=== PATIENT | female | born 1980 | race African-American/Black ===

== ENCOUNTER 2025-01-31 15:08 | Inpatient (IN) | payer MEDICAID, OTHER ==
[~2025-01-31] VITALS: Ht 175.3 cm; Wt 80.1 kg
[2025-01-31] VITALS (8 sets, daily range): BP systolic 115–132; BP diastolic 71–84; PULSE 54–91; RESP 11–20; TEMP 98.1–98.3; O2SAT 99–100
--- NOTE | 2025-01-31 15:31 | ED.PDOC ---
SOB-HPI HPI Comments This is a 44 year old female presenting to the ED with chief complaint of SOB. Patient reports that she has been experiencing SOB with associated nausea for the past week. Patient relays that she was previously diagnosed with anemia 2 months ago. 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 Patient denies any cough, leg swelling, chest pain, dizziness, headache, vomiting, fever, or chills. 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 SPRAYER History: Denies all CHEMICAL SPRAYER Hx Family History Family History: Reviewed,noncontributory to illness Social History Smoker: Cigarettes Alcohol: Rarely Drugs: Marijuana Lives In: Home Constitutional: denies: chills, diaphoresis, fatigue, fever, malaise, sweats, weakness, others EENTM: denies: blurred vision, double vision, ear bleeding, ear discharge, ear drainage, ear pain, ear ringing, eye pain, eye redness, hearing loss, mouth pain, mouth swelling, nasal discharge, nose bleeding, nose congestion, nose pain, photophobia, tearing, throat pain, throat swelling, voice changes, others Respiratory: reports: shortness of breath; denies: cough, hemoptysis, orthopnea, SOB at rest, SOB with excertion, stridor, wheezing, others Cardiovascular: denies: chest pain, dizzy spells, diaphoresis, Dyspnea on exertion, edema, irregular heart beat, left arm pain, lightheadedness, palpitations, PND, syncope, others Gastrointestinal: reports: nausea; denies: abdomen distended, abdominal pain, blood streaked bowels, constipated, diarrhea, dysphagia, difficulty swallowing, hematemesis, melena, poor appetite, poor fluid intake, rectal bleeding, rectal pain, vomiting, others Genitourinary: denies: abnormal vagina bleeding, burning, dyspareunia, dysuria, flank pain, frequency, hematuria, incontinence, pain, , vagina discharge, urgency, others Neurological: denies: dizziness, fainting, headache, left sided numbness, left sided weakness, numbness, paresthesia, pre-existing deficit, right sided numbness, right sided weakness, seizure, speech problems, tingling, tremors, weakness, others Musculoskeletal: denies: back pain, gout, joint pain, joint swelling, muscle pain, muscle stiffness, neck pain, others Integumetry: denies: bruises, change in color, change in hair/nails, dryness, laceration, lesions, lumps, rash, wounds, others Allergic/Immunocompromised: denies: Difficulty Healing, Frequent Infections, Hives, Itching, others Hematologic/Lymphatic: denies: anemia, blood clots, easy bleeding, easy bruising, swollen glands, others Endocrine: denies: excessive hunger, excessive sweating, excessive thirst, excessive urination, flushing, intolerance to cold, intolerance to heat, un explained weight gain, unexplained weight loss, others Psychiatric: denies: anxiety, bipolar disorder, depression, hopeless, panic disorder, schizophrenia, sleepless, suicidal, others All Other Systems: Reviewed and Negative Physical Exam General Appearance: Moderate Distress HEENT: Pale Conjuntivae (L), Pale Conjuntivae (R), Pharynx Normal, TMs Normal Neck: Full Range of Motion, Non-Tender, Normal, Normal Inspection Respiratory: Chest Non-Tender, Decreased Breath Sounds, Lungs Clear, No Acc essory Muscle Use, Respiratory Distress Cardiovascular: No Edema, No JVD, No Murmur, No Gallop, Tachycardia Breast Exam: Deferred Gastrointestinal: No Organomegaly, Non Tender, No Pulsatile Mass, Normal Bowel Sounds, Soft Genitalia: Deferred Pelvic: Deferred Rectal: Deferred Extremities: No calf tenderness, Normal capillary refill, No pedal edema Musculoskeletal : Apperance: Normal Neurologic: Alert, inventory control associate II-XII nml as Tested, Motor Weakness, Normal Affect, Normal Mood, No Sensory Deficits Cerebellar Function: Normal Reflexes: Normal Skin: Dry, Pallor, Warm Lymphatic: No Adenopathy Was a procedure done? Was a procedure done?: No Differential Dx Differential Diagnosis: Asthma, Bronchitis, CHF, COPD, Pneumonia, Pulmonary Embolism X-Ray, Labs, Meds, VS Vital Signs Date Time Temp Pulse Resp B/P (MAP) Pulse Ox O2 Delivery O2 Flow Rate FiO2 01/31/25 15:37 91 19 99 Room Air* 0 21 01/31/25 15:37 98.1 91 19 116/70 (85) 99 98.1 01/31/25 15:37 98.1 91 19 116/70 (85) 99 98.1 Lab Test 01/31/25 15:49 Range/Units White Blood Count 5.0 4.4-10.8 10^3/uL Red Blood Count 3.56 L 4.0-5.20 10^6/uL Hemoglobin 7.1 L 12.2-16.2 g/dL Hematocrit 22.7 L 36.0-46.0 % Mean Corpuscular Volume 63.9 L 80.0-100.0 fL Mean Corpuscular Hemoglobin 20.0 L 28.0-32.0 pg Mean Corpuscular Hemoglobin Concent 31.3 L 32.0-36.0 g/dL Red Cell Distribution Width 20.1 H 11.8-14.3 % Platelet Count 175 140-450 10^3/uL Mean Platelet Volume 8.3 6.9-10.8 fL Neutrophils (%) (Auto) 50.9 37.0-80.0 % Lymphocytes (%) (Auto) 35.3 10.0-50.0 % Monocytes (%) (Auto) 10.0 0.0-12.0 % Eosinophils (%) (Auto) 2.7 0.0-7.0 % Basophils (%) (Auto) 1.1 0.0-2.0 % Neutrophils # (Auto) 2.6 1.6-8.6 10 ^3/uL Lymphocytes # (Auto) 1.8 0.4-5.4 10 ^3/uL Monocytes # (Auto) 0.5 0-1.3 10 ^3/uL Eosinophils # (Auto) 0.1 0-0.8 10 ^3/uL Basophils # (Auto) 0.1 0-0.2 10 ^3/uL Nucleated Red Blood Cells 0.1 % Platelet Estimate Pending D-Dimer, Quantitative Pending Sodium Level Pending Potassium Level Pending Chloride Level Pending Carbon Dioxide Level Pending Anion Gap Pending Blood Urea Nitrogen Pending Creatinine Pending Glomerular Filtration Rate Calc Pending BUN/Creatinine Ratio Pending Serum Glucose Pending Calcium Level Pending Troponin I High Sensitivity Pending B-Type Natriuretic Peptide Pending IV Hep-Lock was established. The patient's CBC shows a hemoglobin of 7.1 and hematocrit 22.7 The patient continues to be short of breath so we are typed and screening and transfusing the patient 2 units of packed red blood cells The chest x-ray shows: IMPRESSION: 1. No pulmonary airspace consolidation. The patient is being admitted at this time The patient will be evaluated by Infectious Disease secondary to the possible TB Images Reviewed?: Images reviewed and evaluated by me Time of 1ST Reevaluation: 16:19 Reevaluation 1ST: Unchanged Patient Education/Counseling: Diagnosis, Treatment, Prognosis Family Education/Counseling: No Family Present Additional Information Reviewed patient's previous visit(s): None The following tests were ordered, and results were reviewed by me: Chest XR, D- Dimer, CBC, BMP, UA, Trop, BNP, EKG Additional information was gathered from interviewing the following independent historian: NONE I reviewed and agreed with the following test results read by other provider: Chest XR I discussed treatments and results with medical personnel and: Patient Comprehensive systems review obtained and negative except for what is stated in the HPI. Departure 1 Departure Time of Disposition: 16:18 Impression: Primary Impression: Severe anemia Additional Impression: Fatigue Qualified Codes: R53.83 - Other fatigue Disposition: 09 ADMITTED INPATIENT Admit to: Tele Condition: Fair Critical Care Note Critical Care Time?: Yes (45 min-critical care time only) Stability Stability form required: Yes Unstable for transfer: Telemetry monitoring (Telemetry monitoring required), ED Physician Assesment (Clinical assesment) Heart Score Heart Score: Heart Score Response (Comments) Value History N/A 0 EKG N/A 0 Age N/A 0 Risk Factors N/A 0 Troponin N/A 0 Total 0 I personally scribed for PAL MORENO MD ([email or web address]) on 01/31/25 at 15:31. Electronically submitted by Santos Thrasher ([email or web address]). I personally scribed for PAL MORENO MD ([email or web address]) on 01/31/25 at 15:33. Electronically submitted by Santos Thrasher ([email or web address]). PAL MORENO MD Jan 31, 2025 15:31
[2025-01-31 16:01] LABS: Eosinophils # (auto) 0.1 10 ^3/uL (0-0.8); Lymphocytes # (auto) 1.8 10 ^3/uL (0.4-5.4); Monocytes # (auto) 0.5 10 ^3/uL (0-1.3); Neutrophils % (auto) 50.9 % (37.0-80.0); Nucleated Red Blood Cells % 0.1 %
[2025-01-31 16:02] LABS: Basophils # (auto) 0.1 10 ^3/uL (0-0.2); Basophils % (auto) 1.1 % (0.0-2.0); Eosinophils % (auto) 2.7 % (0.0-7.0); Hematocrit 22.7 % (36.0-46.0); Hemoglobin 7.1 g/dL (12.2-16.2); Lymphocytes % (auto) 35.3 % (10.0-50.0); Mean Corpuscular Hgb Conc. 31.3 g/dL (32.0-36.0); Mean Corpuscular Volume 63.9 fL (80.0-100.0); Neutrophils # (auto) 2.6 10 ^3/uL (1.6-8.6); Platelet Count (auto) 175 10^3/uL (140-450); Red Blood Cells 3.56 10^6/uL (4.0-5.20)
[2025-01-31 16:04] LABS: Red Cell Distribution Width 20.1 % (11.8-14.3)
--- NOTE | 2025-01-31 16:12 | DVH ---
CHEST RADIOGRAPH Indication: sob Technique: Single frontal view of the chest was obtained Comparison: None FINDINGS: The cardiac silhouette is unremarkable. The lungs demonstrate no pulmonary airspace consolidation. Th e pulmonary vasculature is unremarkable. There is no pleural effusion.. There is no pneumothorax. IMPRESSION: 1. No pulmonary airspace consolidation.
[2025-01-31 16:18] LABS: Anion Gap 9 (5-15); Carbon Dioxide 23 mmol/L (20-31); Sodium 142 mmol/L (136-145)
[2025-01-31 16:24] LABS: BUN/Creatinine Ratio 8.8 (10.0-20.0); Blood Urea Nitrogen 7 mg/dL (9-23); Chloride 110 mmol/L (98-107); Glucose 89 mg/dL (74-106); Potassium 3.2 mmol/L (3.5-5.1)
[2025-01-31 16:29] LABS: Anisocytosis Slight; Hypochromia Marked; Platelet Estimate Adequate
[2025-01-31 17:51] LABS: Urine Bacteria MANY /hpf (None Seen); Urine Blood Negative /uL (Negative); Urine Clarity Clear (Clear); Urine Color Colorless (Yellow); Urine Protein, UAD Negative (Negative); Urine Specific Gravity 1.007 (1.001-1.035); Urine Squamous Epithelial Cell FEW /hpf (<5); Urine Urobilinogen Normal (Negative); Urine WBC 2 /HPF (0-5); Urine pH 5.5 (5.0-9.0)
[2025-01-31] MEDS ORDERED: DOCUSATE SOD 100 MG CAP PO PRN (20:45)
[2025-01-31] MEDS: LORazepam 2MG/ML-1ML VIAL IV ONE (20:58)
[2025-01-31] MEDS: POTASSIUM CHL 20 Meq TABLET PO ONE (21:34)
--- NOTE | 2025-01-31 22:57 | DVHHP2 ---
History of Present Illness Reason for Visit: Severe anemia History of Present Illness The patient is a 44-year-old female with past medical history of anemia who presented to [facility] ED with complaint of shortness of breaths. Patient reports experiencing generalized weakness, associated nausea, getting worse that prompted this visit. Patient was seen and evaluated in the ED, laboratory data shows WBC 5.0, hemoglobin 7.1, hematocrit 22.7, platelets 175, sodium 142, potassium 3.2, BUN 7, creatinine 0.80, glucose 89, BNP 97.69, troponin 3, D-dimer 0.93, blood pressure 125/75, heart rate 91, temperature 98.2 F, O2 saturation 99% on oxygen. CT angiography showed no evidence of pulmonary atrial filling defect as far as the proximal interlobular level. Patient was given 2 units of PRBC, please see medication orders section in the computer. On my assessment, patient denied chest pain, no headache, no dizziness, no diaphoresis, currently on oxygen, no nausea, no vomiting, no fever, no chills. Patient was admitted for further evaluation and medical management. Past Medical History Anemia Past Surgical History Denies all surgeries Family History Reviewed, noncontributory to the management of this case. Past Social History Patient lives at home, smokes cigarettes, drinks alcohol rarely, uses marijuana. Review of Systems Constitutional: Yes: Weakness; No: Fever, Chills, Sweats, Malaise, Other Eyes: No: Pain, Vision change, Conjunctivae inflammation, Eyelid inflammation, Other, Redness ENT: No: Ear pain, Ear discharge, Nose pain, Nose discharge, Nose congestion, Mouth pain, Mouth swelling, Throat pain, Throat swelling, Other Respiratory: Shortness of breath; No: Cough, Dry, SOB with excertion, Wheezing, Hemoptysis, Pleuritic Pain, Sputum, Wheezing, Other Cardiovascular: No: Chest Pain, Palpitations, Orthopnea, Paroxysmal Noc. Dyspnea, Edema, Lt Headedness, Other Gastrointestinal: No: Nausea, Vomiting, Abdominal Pain, Diarrhea, Constipation, Melena, Hematochezia, Other Genitourinary: No Dysuria, No Frequency, No Incontinence, No Hematuria, No Retention, No Other Musculoskeletal: No: other, neck pain, shoulder pain, arm pain, back pain, hand pain, leg pain, foot pain Skin: No: Rash, Lesions, Jaundice, Bruising, Other Neurological: No: Weakness, Numbness, Incoordination, Change in speech, Confusion, Seizures, Other Allergies: Coded Allergies: Cefazolin (Verified Allergy, Unknown, 01/31/25) Penicillins (Verified Allergy, Unknown, 01/31/25) PT ALLERGIC TO ALL CILINS Medications Current Medications Medications Dose Ordered Sig/Mihir Route Start Time Stop Time Status Last Admin Dose Admin Albuterol 2.5 mg Q4HPRN PRN NEB 01/31/25 20:45 Ipratropium [place] 0.5 mg Q4HPRN PRN NEB 01/31/25 20:45 Acetaminophen/ Hydrocodone Bitart 1 tab Q4HP PRN PO 01/31/25 20:45 Ondansetron HCl 4 mg Q4HP PRN IV 01/31/25 20:45 Docusate Sodium 100 mg BIDPRN PRN PO 01/31/25 20:45 Acetaminophen 650 mg Q6HP PRN PO 01/31/25 20:45 Exam Vital Signs Vital Signs Date Time Temp Pulse Resp B/P (MAP) Pulse Ox O2 Delivery O2 Flow Rate FiO2 01/31/25 21:35 98.1 55 18 123/71 100 98.1 01/31/25 21:34 Room Air* 0 21 General Appearance: Alert, Oriented X3, Cooperative, No acute distress HEENT: Atraumatic, PERRLA, EOMI, Mucous membr. moist/pink Respiratory: Clear to auscultation, Normal air movement Cardiovascular: Regular rate, Normal S1, Normal S2, No murmurs Abdominal: Normal bowel sounds, Soft, No tenderness, No hepatospenomegaly, No masses Extremities: No clubbing, No cyanosis, No edema, Normal pulses, No tenderness/swelling Skin: No rashes, No breakdown, No significant lesion Neuro: Normal speech, Normal tone, Sensation intact, Cranial nerves 3-12 NL, Reflexes 2+, Other (Generalized weakness) Psych/Mental Status: Mental status NL, Mood NL Labs/Xrays Labs Test 01/31/25 18:59 01/31/25 17:00 01/31/25 15:49 Range/Units Troponin I High Sensitivity 3 L </=34 ng/L Urine Color Colorless Yellow Urine Clarity Clear Clear Urine pH 5.5 5.0-9.0 Urine Specific Lo[place] 1.007 1.001-1.035 Urine Protein Negative Negative Urine Ketones Negative Negative Urine Blood Negative Negative /uL Urine Nitrite Negative Negative Urine Bilirubin Negative Negative Urine Urobilinogen Normal Negative mg/dL Urine Leukocyte Esterase Negative Negative /uL Urine RBC 1 0 - 4 /hpf Urine Microscopic WBC 2 0-5 /HPF Urine Squamous Epithelial Cells Few <5 /hpf Urine Bacteria Many H None Seen /hpf Urine Glucose Normal Normal mg/dL White Blood Count 5.0 4.4-10.8 10^3/uL Red Blood Count 3.56 L 4.0-5.20 10^6/uL Hemoglobin 7.1 L 12.2-16.2 g/dL Hematocrit 22.7 L 36.0-46.0 % Mean Corpuscular Volume 63.9 L 80.0-100.0 fL Mean Corpuscular Hemoglobin 20.0 L 28.0-32.0 pg Mean Corpuscular Hemoglobin Concent 31.3 L 32.0-36.0 g/dL Red Cell Distribution Width 20.1 H 11.8-14.3 % Platelet Count 175 140-450 10^3/uL Mean Platelet Volume 8.3 6.9-10.8 fL Neutrophils (%) (Auto) 50.9 37.0-80.0 % Lymphocytes (%) (Auto) 35.3 10.0-50.0 % Monocytes (%) (Auto) 10.0 0.0-12.0 % Eosinophils (%) (Auto) 2.7 0.0-7.0 % Basophils (%) (Auto) 1.1 0.0-2.0 % Neutrophils # (Auto) 2.6 1.6-8.6 10 ^3/uL Lymphocytes # (Auto) 1.8 0.4-5.4 10 ^3/uL Monocytes # (Auto) 0.5 0-1.3 10 ^3/uL Eosinophils # (Auto) 0.1 0-0.8 10 ^3/uL Basophils # (Auto) 0.1 0-0.2 10 ^3/uL Nucleated Red Blood Cells 0.1 % Platelet Estimate Adequate Hypochromasia (manual) Marked Anisocytosis (manual) Slight Microcytosis Marked D-Dimer, Quantitative 0.93 H 0.0-0.49 mg/L FEU Sodium Level 142 136-145 mmol/L Potassium Level 3.2 L 3.5-5.1 mmol/L Chloride Level 110 H 98-107 mmol/L Carbon Dioxide Level 23 20-31 mmol/L Anion Gap 9 5-15 Blood Urea Nitrogen 7 L 9-23 mg/dL Creatinine 0.80 0.550-1.02 mg/dL Glomerular Filtration Rate Calc 94 >90 mL/min BUN/Creatinine Ratio 8.8 L 10.0-20.0 Serum Glucose 89 74-106 mg/dL Calcium Level 9.0 8.7-10.4 mg/dL B-Type Natriuretic Peptide 97.69 0-100 pg/mL PATIENT: RADHA GRACE ACCT: [id number] UNIT: [id number] : 1980 LOC: [facility] ROOM / BED: [facility]9T / A AGE / SEX: 44 / F ADM STATUS: ADM IN SERVICE 37 ORDERING PHYSICIAN: MAXX AHN DNP PROCEDURE(s): CTACH - CT ANGIO CHEST CONTRAST REASON: Elevated D-dimer ORDER NUMBER(s): [id number], ACCESSION NUMBER(s): [id number] COMPUTERIZED TOMOGRAPHIC ANGIOGRAPHY OF THE CHEST WITH INTRAVENOUS CONTRAST REASON FOR EXAM: Elevated D-dimer COMPARISON: None TECHNIQUE: The exam was performed on a multidetector spiral scanner. Spiral images were acquired from the thoracic inlet through the adrenal glands, during the bolus intravenous administration of contrast. Images were reconstructed with a slice thickness of 3 mm. Multiplanar maximum intensity projection (MIP) images were provided. Automated exposure control was used. LABS: Current laboratory values provided were reviewed or point of care testing was performed to verify the patient meets current departmental guidelines for contrast media administration per protocol. CONTRAST ADMINISTERED: 100 mL omnipaque 350 intravenously. MEDICATIONS: The patient's medication list was reviewed. RADIATION DOSE: CTDI: 27 mGy DLP: 774 mGy-cm FINDINGS: Evaluation of the lung parenchyma is degraded by significant respiratory motion artifact. No pulmonary nodule or mass is identified within the limitations of artifact. There is no pleural effusion. There is no pneumothorax. There is subcentimeter bilateral hilar adenopathy. There is no thoracic aortic aneurysm. There is no evidence of pulmonary arterial filling defect as far as the proximal interlobar level. The heart is not enlarged. There is no pericardial effusion. The visualized thyroid gland is unremarkable. No pathologic lymphadenopathy is identified by size criteria. No acute osseous abnormality is identified. IMPRESSION: There is no evidence of pulmonary arterial filling defect as far as the proximal interlobar level. Subcentimeter bilateral hilar lymph nodes, nonspecific. ORDERING PHYSICIAN: PAL MORENO MD PROCEDURE(s): CXRP - CHEST PORTABLE REASON: sob ORDER NUMBER(s): [id number], ACCESSION NUMBER(s): [id number] CHEST RADIOGRAPH Indication: sob Technique: Single frontal view of the chest was obtained Comparison: None FINDINGS: The cardiac silhouette is unremarkable. The lungs demonstrate no pulmonary airspace consolidation. The pulmonary vasculature is unremarkable. There is no pleural effusion. There is no pneumothorax. IMPRESSION: 1. No pulmonary airspace consolidation. Assessment/Plan Assessment/Plan Severe anemia Fatigue Other fatigue Elevated D-dimer Generalized weakness Plan 1. Admit to telemetry unit 2. Breathing treatment 3. Pain control management 4. Management of fluids and electrolytes 5. Consultation for hospitalist 6. Diagnostic tests CT angiography 7. DVT prophylaxis-on SCDs 8. Repeat labs CBC, CMP in a.m. 9. Continue with current medical management 10. Treatment plan discussed with patient and RN. Patient verbalized understanding. Plan discussed with: Patient, Other (RN) My Orders Orders - MAXX AHN DNP Procedure Category Date Status Time Ct Angio Chest CT 01/31/25 Logged Contrast 20:38 Albuterol Medneb PHA 01/31/25 In Process (Ventolin Medneb) 20:45 Ipratropium Medneb PHA 01/31/25 In Process (Atrovent Medneb) 20:45 Allergies MEGHA 01/31/25 In Process 20:38 Code Status CODE 01/31/25 Transmitted 20:38 Oxygen Per Hour RT 01/31/25 Transmitted 20:38 Hydrocodone-Acet PHA 01/31/25 In Process 5/325mg Tab (Eola 20:45 Ondansetron Hcl PHA 01/31/25 In Process (Zofran) 20:45 Docusate Sodium PHA 01/31/25 In Process Capsule (Colace 20:45 Complete Blood Count LAB 02/01/25 Verified 04:00 Comprehensive LAB 02/01/25 Verified Metabolic Panel 04:00 Cardiac DIET 02/01/25 Transmitted Diet-2gna,Lofat,Lochol Breakfast Condition: Serious MEGHA 01/31/25 In Process 20:38 Acetaminophen Tablet PHA 01/31/25 In Process (Tylenol Tablet) 20:45 Bedrest With Bathroom MEGHA 01/31/25 In Process Privileg 20:38 Sequential MEGHA 01/31/25 In Process Compression Device Problem List: (1) Severe anemia (2) Fatigue (3) Other fatigue (4) Elevated d-dimer (5) Generalized weakness Date of Service: Jan 31, 2025 Billing Provider: MAXX AHN DNP Common Visit Codes: 13309-QUHUCEQ INP/OBS CARE (HIGH) MAXX AHN DNP Jan 31, 2025 22:57
[2025-01-31] MEDS ORDERED: NITROGLYCERIN 0.4 MG SL TAB SL PRN (23:00)
[2025-01-31] MEDS ORDERED: MORPHINE SULFATE INJ 2 MG/ml SYRG IV PRN (23:00)
[2025-01-31] MEDS: IOHEXOL 350 MG/ML 100ML IJ ONE (23:01)
--- NOTE | 2025-01-31 23:56 | DVH ---
COMPUTERIZED TOMOGRAPHIC ANGIOGRAPHY OF THE CHEST WITH INTRAVENOUS CONTRAST REASON FOR EXAM: Elevated D-dimer COMPARISON: None TECHNIQUE: The exam was performed on a multidetector spiral scanner. Spiral images were acquired fro m the thoracic inlet through the adrenal glands, during the bolus intravenous administration of cont rast. Images were reconstructed with a slice thickness of 3 mm. Multiplanar maximum intensity proje ction (MIP) images were provided. Automated exposure control was used. LABS: Current laboratory values provided were reviewed or point of care testing was performed to kelley steve the patient meets current departmental guidelines for contrast media administration per protocol. CONTRAST ADMINISTERED: 100 mL omnipaque 350 intravenously. MEDICATIONS: The patient's medication list was reviewed. RADIATION DOSE: CTDI: 27 mGy DLP: 774 mGy-cm FINDINGS: Evaluation of the lung parenchyma is degraded by significant respiratory motion artifact. No pulmonary nodule or mass is identified within the limitations of artifact. There is no pleural eff usion. There is no pneumothorax. There is subcentimeter bilateral hilar adenopathy. There is no thora cic aortic aneurysm. There is no evidence of pulmonary arterial filling defect as far as the proximal interlobar level. The heart is not enlarged. There is no pericardial effusion. The visualized thyro id gland is unremarkable. No pathologic lymphadenopathy is identified by size criteria. No acute osse ous abnormality is identified. IMPRESSION: There is no evidence of pulmonary arterial filling defect as far as the proximal interlobar level. Subcentimeter bilateral hilar lymph nodes, nonspecific.
[2025-02-01] VITALS (14 sets, daily range): BP systolic 115–144; BP diastolic 60–80; PULSE 52–92; RESP 16–18; TEMP 97.4–98.4; O2SAT 96–100
[2025-02-01] MEDS: MELATONIN 5 MG TAB PO ONE (01:58)
[2025-02-01 08:58] LABS: Basophils # (auto) 0.1 10 ^3/uL (0-0.2); Neutrophils # (auto) 3.7 10 ^3/uL (1.6-8.6); Nucleated Red Blood Cells % 0.1 %
[2025-02-01 09:00] LABS: Basophils % (auto) 1.1 % (0.0-2.0); Eosinophils # (auto) 0.1 10 ^3/uL (0-0.8); Eosinophils % (auto) 2.3 % (0.0-7.0); Hematocrit 30.4 % (36.0-46.0); Hemoglobin 9.7 g/dL (12.2-16.2); Lymphocytes # (auto) 1.5 10 ^3/uL (0.4-5.4); Lymphocytes % (auto) 24.5 % (10.0-50.0); Mean Corpuscular Hemoglobin 21.6 pg (28.0-32.0); Mean Corpuscular Hgb Conc. 31.8 g/dL (32.0-36.0); Monocytes # (auto) 0.6 10 ^3/uL (0-1.3); Monocytes % (auto) 10.3 % (0.0-12.0); Neutrophils % (auto) 61.8 % (37.0-80.0); Platelet Count (auto) 181 10^3/uL (140-450); Red Blood Cells 4.48 10^6/uL (4.0-5.20); Red Cell Distribution Width 23.7 % (11.8-14.3)
[2025-02-01 09:20] LABS: Alanine Aminotransferase 14 U/L (7-40); Albumin 4.4 g/dL (3.2-4.8); Anion Gap 8 (5-15); Aspartate Aminotransferase 20 U/L (13-40); BUN/Creatinine Ratio 9.1 (10.0-20.0); Calcium 9.5 mg/dL (8.7-10.4); Carbon Dioxide 21 mmol/L (20-31); Glucose 86 mg/dL (74-106); Potassium 4.1 mmol/L (3.5-5.1); Sodium 143 mmol/L (136-145); Total Protein 7.3 g/dL (5.7-8.2)
[2025-02-01 09:23] LABS: Alkaline Phosphatase 121 U/L (46-116); Bilirubin, Total 1.9 mg/dL (0.2-1.0); Blood Urea Nitrogen 7 mg/dL (9-23); Chloride 114 mmol/L (98-107)
[2025-02-01] MEDS: HYDROcodone-ACET 5/325MG TAB PO PRN (11:44)
[2025-02-01] MEDS: ONDANSETRON HCL 4 MG/2 ML VIAL IV PRN (16:01)
--- NOTE | 2025-02-01 16:59 | DVHPN2 ---
Subjective Overnight events noted patient is here for shortness of breaths palpitation and disease spells. Patient also stated that she was recently positive for QuantiFERON at [facility] currently ruling out tuberculosis Changes from previous H/P or p: No Changes Eyes: No Pain, No Vision change, No Conjunctivae inflammation, No Eyelid inflammation, No Other, No Redness ENT: No Ear pain, No Ear discharge, No Nose pain, No Nose discharge, No Nose congestion, No Mouth pain, No Mouth swelling, No Throat pain, No Throat swelling, No Other Cardiovascular: No Chest Pain, No Palpitations, No Orthopnea, No Paroxysmal Noc. Dyspnea, No Edema, No Lt Headedness, No Other Respiratory: No Cough, No Dry; Shortness of breath; No SOB with excertion, No Wheezing, No Hemoptysis, No Pleuritic Pain, No Sputum, No Other Gastrointestinal: No Nausea, No Vomiting, No Abdominal Pain, No Diarrhea, No Constipation, No Melena, No Hematochezia, No Other Genitourinary: No Dysuria, No Frequency, No Incontinence, No Hematuria, No Retention, No Other Musculoskeletal: No other, No neck pain, No shoulder pain, No arm pain, No back pain, No hand pain, No leg pain, No foot pain Skin: No Rash, No Lesions, No Jaundice, No Bruising, No Other Objective Vitals Vital Signs Date Time Temp Pulse Resp B/P (MAP) Pulse Ox O2 Delivery O2 Flow Rate FiO2 02/01/25 13:00 97.7 69 16 115/60 (78) 99 97.7 02/01/25 10:45 Room Air* 0 21 Intake/Output Intake and Output 02/01/25 07:00 Intake Total 2090 ml Output Total 0 ml Balance 2090 ml Intake Oral 890 ml Tube Feeding 0 ml Blood Product 900 ml Other 300 ml Output Urine Total 0 ml Stool Total 0 ml # Voids 2 Medications Current Medications Medications Dose Ordered Sig/Mihir Route Start Time Stop Time Status Last Admin Dose Admin Albuterol 2.5 mg Q4HPRN PRN NEB 01/31/25 20:45 Ipratropium [place] 0.5 mg Q4HPRN PRN NEB 01/31/25 20:45 Acetaminophen/ Hydrocodone Bitart 1 tab Q4HP PRN PO 01/31/25 20:45 02/01/25 11:44 1 TAB Ondansetron HCl 4 mg Q4HP PRN IV 01/31/25 20:45 02/01/25 16:01 4 MG Docusate Sodium 100 mg BIDPRN PRN PO 01/31/25 20:45 Acetaminophen 650 mg Q6HP PRN PO 01/31/25 20:45 Nitroglycerin 0.4 mg Q5MINP PRN SL 01/31/25 23:00 Morphine Sulfate 2 mg Q30M PRN IV 01/31/25 23:00 Melatonin 5 mg HS PO 02/01/25 22:00 Alprazolam 0.5 mg Q8HPRN PRN PO 02/01/25 15:45 Laboratory Results Laboratory Tests 02/01/25 08:40 Chemistry Test 02/01/25 08:40 Albumin 4.4 g/dL (3.2-4.8) Calcium Level 9.5 mg/dL (8.7-10.4) Total Protein 7.3 g/dL (5.7-8.2) LFT Test 02/01/25 08:40 Alanine Aminotransferase (ALT) 14 U/L (7-40) Alkaline Phosphatase 121 U/L (46-116) H Aspartate Amino Transferase (AST) 20 U/L (13-40) Total Bilirubin 1.9 mg/dL (0.2-1.0) H Urinalysis Test 01/31/25 17:00 Urine Color Colorless (Yellow) Urine Clarity Clear (Clear) Urine pH 5.5 (5.0-9.0) Urine Specific [place] 1.007 (1.001-1.035) Urine Protein Negative (Negative) Urine Ketones Negative (Negative) Urine Blood Negative /uL (Negative) Urine Nitrite Negative (Negative) Urine Bilirubin Negative (Negative) Urine Urobilinogen Normal mg/dL (Negative) Urine Leukocyte Esterase Negative /uL (Negative) Urine RBC 1 /hpf (0 - 4) Urine Microscopic WBC 2 /HPF (0-5) Urine Squamous Epithelial Cells Few /hpf (<5) Urine Bacteria Many /hpf (None Seen) H Urine Glucose Normal mg/dL (Normal) Assessment/Plan Assessment/Plan 81-year-old female with a known history of chronic anemia, presented to the hospital with a complaining of fainting spells on and off. 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 Currently we are waiting for the records from [facility]. Also patient was told by mother that she was treated for TB when she was a child for one year. 1. Recent positive QuantiFERON as an outpatient, rule out tuberculosis although clinical suspicion is low 2. Severe anemia status post 2 units of packed RBC 3. Fainting spells suspect anxiety disorder 4. Bilateral hilar adenopathy -checks sputum for AFB x3, QuantiFERON gold. Follow up Infectious Disease recommendations, anxiety pills. Plan discussed with: Patient My Orders Orders - KWABENA NICHOLAS MD Procedure Category Date Status Time * Infectious Shahla- CONS 02/01/25 Transmitted K Miguel 14:47 Alprazolam Tablet PHA 02/01/25 In Process (Xanax Tablet) 15:45 Date of Service: Feb 01, 2025 Billing Provider: KWABENA NICHOLAS MD Common Visit Codes: [id number] INP/OBS CARE(MOD) KWABENA NICHOLAS MD Feb 01, 2025 16:59
--- NOTE | 2025-02-01 17:22 | DVHCONRES ---
Date Seen: Feb 01, 2025 Resident Creating Document: BESS DIA RESIDENT Referring Physician Dr Jordan Reason for Consultation Rule out TB History of Present Illness 44 F with PMH of anemia, menorhhagia, presented with complaints of fainting spells since August, associated with episodes of shortness of breath, sweating. Patient mentioned that she has generalized fatigue since August with loss of appetite and weight loss. Patient does not remember the exact amount of weight loss. She also mentioned we had dry cough with a occasional cough with sputum since September. 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 Patient mentioned that she had BCG vaccine in childhood and was told by mother that she was treated for TB when she was a child for one year. He denied any other exposure of TB, denied any travel outside of the country. She denied symptoms of evening sweats, fever, chills. She denied any chest pain, palpitation, orthopnea, headache, seizures, nausea, vomiting. Past medical history Anemia, menorrhagia Past surgical history Tubal ligation 1999 Social history Patient lives with her kid Smokes cigarettes 5-8 cigarettes per day since teenager Occasional marijuana and alcohol use Denied any other drugs Medication history No active medications Sexual history Not sexually active for last one year, history of multiple partners Menstrual history Regular cycles Menses last eight days, normal flow Allergic history Patient mentioned allergic to penicillin, Ancef, describes as severe with itching, hives, mentions "we will after taking penicillin" Family History: Diabetes mellitus G8 MOTHER Hypertension G8 MOTHER Allergies: Coded Allergies: Morphine (Verified Allergy, Intermediate, 02/05/25) Cefazolin (Verified Allergy, Unknown, 01/31/25) Penicillins (Verified Allergy, Unknown, 01/31/25) PT ALLERGIC TO ALL CILINS Home Meds No Active Prescriptions or Reported Meds Current Medications Current Medications Medications (Trade) Dose Ordered Sig/Mihir Route PRN Reason Start Time Stop Time Status Last Admin Albuterol (Ventolin Medneb) 2.5 mg Q4HPRN PRN NEB SHORTNESS OF BREATH 01/31/25 20:45 Ipratropium [place] (Atrovent Medneb) 0.5 mg Q4HPRN PRN NEB SHORTNESS OF BREATH 01/31/25 20:45 Acetaminophen/ Hydrocodone Bitart (Kake 5/325MG Tab) 1 tab Q4HP PRN PO MODERATE PAIN (4-6 PAIN SCALE) 01/31/25 20:45 02/01/25 11:44 Ondansetron HCl (Zofran) 4 mg Q4HP PRN IV NAUSEA / VOMITING 01/31/25 20:45 02/01/25 16:01 Docusate Sodium (Colace Capsule) 100 mg BIDPRN PRN PO FOR CONSTIPATION 01/31/25 20:45 Acetaminophen (Tylenol Tablet) 650 mg Q6HP PRN PO PAIN SCALE 1-3 OR TEMP>100.4 01/31/25 20:45 Nitroglycerin (Ntrostat Sublingual) 0.4 mg Q5MINP PRN SL FOR CHEST PAIN 01/31/25 23:00 Morphine Sulfate 2 mg Q30M PRN IV FOR CHEST PAIN 01/31/25 23:00 Melatonin (Melatonin) 5 mg HS PO 02/01/25 22:00 Alprazolam (Xanax Tablet) 0.5 mg Q8HPRN PRN PO ANXIETY 02/01/25 15:45 Review of Systems As described in the HPI Vital Signs Vital Signs Date Time Temp Pulse Resp B/P (MAP) Pulse Ox O2 Delivery O2 Flow Rate FiO2 02/01/25 13:00 97.7 69 16 115/60 (78) 99 97.7 02/01/25 10:45 Room Air* 0 21 Physical Exam Examination General Appearance: Alert, Oriented X3, Cooperative, No acute distress HEENT: EOMI Respiratory: Clear to auscultation, Normal air movement Cardiovascular: Regular rate, Normal S1, Normal S2 Abdominal: Normal bowel sounds Extremities: No cyanosis, No edema, Normal pulses, No tenderness/swelling Skin: No rashes, No breakdown Neuro: Normal gait, Normal speech, Strength at 5/5 X4 ext, Normal tone, Sensation intact, Cranial nerves 3-12 NL, Reflexes 2+ Psych/Mental Status: Mental status NL, Mood NL Dermatological examination: Black Macular spots on multiple distributions on bilateral legs Labs/Diagnostic Data Labs Test 02/01/25 08:40 01/31/25 18:59 01/31/25 17:00 01/31/25 15:49 Range/Units White Blood Count 6.0 4.4-10.8 10^3/uL Red Blood Count 4.48 4.0-5.20 10^6/uL Hemoglobin 9.7 #L 12.2-16.2 g/dL Hematocrit 30.4 #L 36.0-46.0 % Mean Corpuscular Volume 68.0 #L 80.0-100.0 fL Mean Corpuscular Hemoglobin 21.6 L 28.0-32.0 pg Mean Corpuscular Hemoglobin Concent 31.8 L 32.0-36.0 g/dL Red Cell Distribution Width 23.7 H 11.8-14.3 % Platelet Count 181 140-450 10^3/uL Mean Platelet Volume 8.9 6.9-10.8 fL Neutrophils (%) (Auto) 61.8 37.0-80.0 % Lymphocytes (%) (Auto) 24.5 10.0-50.0 % Monocytes (%) (Auto) 10.3 0.0-12.0 % Eosinophils (%) (Auto) 2.3 0.0-7.0 % Basophils (%) (Auto) 1.1 0.0-2.0 % Neutrophils # (Auto) 3.7 1.6-8.6 10 ^3/uL Lymphocytes # (Auto) 1.5 0.4-5.4 10 ^3/uL Monocytes # (Auto) 0.6 0-1.3 10 ^3/uL Eosinophils # (Auto) 0.1 0-0.8 10 ^3/uL Basophils # (Auto) 0.1 0-0.2 10 ^3/uL Nucleated Red Blood Cells 0.1 % Sodium Level 143 136-145 mmol/L Potassium Level 4.1 3.5-5.1 mmol/L Chloride Level 114 H 98-107 mmol/L Carbon Dioxide Level 21 20-31 mmol/L Anion Gap 8 5-15 Blood Urea Nitrogen 7 L 9-23 mg/dL Creatinine 0.77 0.550-1.02 mg/dL Glomerular Filtration Rate Calc 98 >90 mL/min BUN/Creatinine Ratio 9.1 L 10.0-20.0 Serum Glucose 86 74-106 mg/dL Calcium Level 9.5 8.7-10.4 mg/dL Total Bilirubin 1.9 H 0.2-1.0 mg/dL Aspartate Amino Transferase (AST) 20 13-40 U/L Alanine Aminotransferase (ALT) 14 7-40 U/L Alkaline Phosphatase 121 H 46-116 U/L Total Protein 7.3 5.7-8.2 g/dL Albumin 4.4 3.2-4.8 g/dL Troponin I High Sensitivity 3 L </=34 ng/L Urine Color Colorless Yellow Urine Clarity Clear Clear Urine pH 5.5 5.0-9.0 Urine Specific [place] 1.007 1.001-1.035 Urine Protein Negative Negative Urine Ketones Negative Negative Urine Blood Negative Negative /uL Urine Nitrite Negative Negative Urine Bilirubin Negative Negative Urine Urobilinogen Normal Negative mg/dL Urine Leukocyte Esterase Negative Negative /uL Urine RBC 1 0 - 4 /hpf Urine Microscopic WBC 2 0-5 /HPF Urine Squamous Epithelial Cells Few <5 /hpf Urine Bacteria Many H None Seen /hpf Urine Glucose Normal Normal mg/dL Platelet Estimate Adequate Hypochromasia (manual) Marked Anisocytosis (manual) Slight Microcytosis Marked D-Dimer, Quantitative 0.93 H 0.0-0.49 mg/L FE B-Type Natriuretic Peptide 97.69 0-100 pg/mL Assessment ----Addendum --------- Dr. Juliet Rivera Patient is a 44 year old female with a past medical history of anemia , maharaja , fainting spells since August . presents with SOB and sweating, having about 10 lbs of weight loss , cough , and sputum since September . Was told by Dish that she was in direct contact with another patient that was positive for Tb and then developed a positive quantifier . Patient states she was given the BCG vaccine , however she was born and raised in [place]. Has no travel history , Labs are normal . Has a notable submental lymph node that is on her left side and is enlarged. Physical exams shows crackles in lungs bilaterally . chest xray shows higher lymphadenopathy . Plan : given the risk factors and known active case of TB at [facility] would do a full TB rule out for this patient - recommend repeat quantifier and gold AFB x 3 and MTB PCR x2 . screen for HIV and hemoglobin A1c - can treat empirically for pneumonia for now - rule out alternative potential diagnosis including Covid -19 , aspergillins , gluxidium mycosis . would include non infectious causes of hyler lympha denopathy in the differential including lymphoma and sarcoidosis a reviewed history physical assessment and plan with Dr. Dia . In agreement with the above witht he exception to changes noted in the addendum Plan/Recommendation Assessment/plan # rule out TB -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 # Hilar Lymphadenopathy -seen on CT # severe symptomatic anemia requiring blood transfusion # Sickle Cell Trait Plan -obtain medical records from [facility] -will repeat Tb gold quantiferon -will order 3X AFB 8hrs apart with MTB PCR -HIV, HbA1c -will order azithromycin for concern for non-tubercular mycobacterial infection ( pt is active smoker, increased risk in underlying lung condition) -will order COVID 19 infection, Aspergillus, and Coccidiomycosis panel -Other differentials include non-infectious causes : Sarcoidosis ( Considering h er symptoms and hilar LAD), Lymphoma Keep patient in isolation and airborne precautions Case discussed with Dr Rivera Plan discussed with: Patient, Other BESS DIA RESIDENT Feb 01, 2025 17:22 JULIET RIVERA MD Feb 13, 2025 11:18
[2025-02-01] MEDS: ACETAMINOPHEN 325 MG TAB PO PRN (18:16)
[2025-02-01] MEDS: ALPRAZolam 0.5 MG TAB PO PRN (20:44)
[2025-02-01] MEDS: AZITHROMYCIN 500MG/ 250ML 250 ML IV ONE (21:51)
[2025-02-01] MEDS: MELATONIN 5 MG TAB PO SCH (21:51)
[2025-02-01 22:06] LABS: Erythrocyte Sedimentation Rate 17 mm/hr (0-20)
[2025-02-02] VITALS (13 sets, daily range): BP systolic 120–141; BP diastolic 61–79; PULSE 48–89; RESP 17–18; TEMP 97.8–98.8; O2SAT 97–100
--- NOTE | 2025-02-02 18:27 | DVHPN2 ---
Subjective Overnight events noted patient is here for shortness of breaths palpitation and disease spells. Patient also stated that she was recently positive for QuantiFERON at [facility] currently ruling out tuberculosis Changes from previous H/P or p: No Changes Eyes: No Pain, No Vision change, No Conjunctivae inflammation, No Eyelid inflammation, No Other, No Redness ENT: No Ear pain, No Ear discharge, No Nose pain, No Nose discharge, No Nose congestion, No Mouth pain, No Mouth swelling, No Throat pain, No Throat swelling, No Other Cardiovascular: No Chest Pain, No Palpitations, No Orthopnea, No Paroxysmal Noc. Dyspnea, No Edema, No Lt Headedness, No Other Respiratory: No Cough, No Dry; Shortness of breath; No SOB with excertion, No Wheezing, No Hemoptysis, No Pleuritic Pain, No Sputum, No Other Gastrointestinal: No Nausea, No Vomiting, No Abdominal Pain, No Diarrhea, No Constipation, No Melena, No Hematochezia, No Other Genitourinary: No Dysuria, No Frequency, No Incontinence, No Hematuria, No Retention, No Other Musculoskeletal: No other, No neck pain, No shoulder pain, No arm pain, No back pain, No hand pain, No leg pain, No foot pain Skin: No Rash, No Lesions, No Jaundice, No Bruising, No Other Objective Vitals Vital Signs Date Time Temp Pulse Resp B/P (MAP) Pulse Ox O2 Delivery O2 Flow Rate FiO2 02/02/25 17:00 97.9 89 18 122/62 (82) 100 97.9 02/02/25 10:00 Room Air* 0 21 Intake/Output Intake and Output 02/02/25 07:00 Intake Total 1300 ml Balance 1300 ml Intake Oral 1300 ml # Voids 3 Medications Current Medications Medications Dose Ordered Sig/Mihir Route Start Time Stop Time Status Last Admin Dose Admin Albuterol 2.5 mg Q4HPRN PRN NEB 01/31/25 20:45 Ipratropium [place] 0.5 mg Q4HPRN PRN NEB 01/31/25 20:45 Acetaminophen/ Hydrocodone Bitart 1 tab Q4HP PRN PO 01/31/25 20:45 02/01/25 11:44 1 TAB Ondansetron HCl 4 mg Q4HP PRN IV 01/31/25 20:45 02/01/25 16:01 4 MG Docusate Sodium 100 mg BIDPRN PRN PO 01/31/25 20:45 Acetaminophen 650 mg Q6HP PRN PO 01/31/25 20:45 02/01/25 18:16 650 MG Nitroglycerin 0.4 mg Q5MINP PRN SL 01/31/25 23:00 Morphine Sulfate 2 mg Q30M PRN IV 01/31/25 23:00 Melatonin 5 mg HS PO 02/01/25 22:00 02/01/25 21:51 5 MG Alprazolam 0.5 mg Q8HPRN PRN PO 02/01/25 15:45 02/02/25 10:37 0.5 MG Azithromycin 250 ml @ 125 mls/hr DAILY@1999 IV 02/02/25 20:00 Laboratory Results Laboratory Tests 02/01/25 08:40 Urinalysis Test 01/31/25 17:00 Urine Color Colorless (Yellow) Urine Clarity Clear (Clear) Urine pH 5.5 (5.0-9.0) Urine Specific [place] 1.007 (1.001-1.035) Urine Protein Negative (Negative) Urine Ketones Negative (Negative) Urine Blood Negative /uL (Negative) Urine Nitrite Negative (Negative) Urine Bilirubin Negative (Negative) Urine Urobilinogen Normal mg/dL (Negative) Urine Leukocyte Esterase Negative /uL (Negative) Urine RBC 1 /hpf (0 - 4) Urine Microscopic WBC 2 /HPF (0-5) Urine Squamous Epithelial Cells Few /hpf (<5) Urine Bacteria Many /hpf (None Seen) H Urine Glucose Normal mg/dL (Normal) Assessment/Plan Assessment/Plan 81-year-old female with a known history of chronic anemia, presented to the hospital with a complaining of fainting spells on and off. 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 Currently we are waiting for the records from [facility]. Also patient was told by mother that she was treated for TB when she was a child for one year. 1. Recent positive QuantiFERON as an outpatient, rule out tuberculosis although clinical suspicion is low 2. Severe anemia status post 2 units of packed RBC 3. Fainting spells suspect anxiety disorder 4. Bilateral hilar adenopathy -checks sputum for AFB x3, QuantiFERON gold. Appreciated Infectious Disease recommendations., anxiety pills. -patient does not not one no motor blood draw. Plan discussed with: Patient My Orders Orders - KWABENA NICHOLAS MD Procedure Category Date Status Time Communication Order ORDERS 02/01/25 Transmitted 19:04 Quantiferon-Tb Gold LAB 02/01/25 In Process 19:53 Date of Service: Feb 02, 2025 Billing Provider: KWABENA NICHOLAS MD Common Visit Codes: [id number] INP/OBS CARE(MOD) KWABENA NICHOLAS MD Feb 02, 2025 18:27
[2025-02-02] MEDS: AZITHROMYCIN 500MG/ 250ML 250 ML IV SCH (20:05)
[2025-02-03] VITALS (12 sets, daily range): BP systolic 114–135; BP diastolic 70–112; PULSE 60–101; RESP 18–20; TEMP 97.9–98.9; O2SAT 98–100
--- NOTE | 2025-02-03 17:39 | DVHPN2 ---
Subjective Events to examined the patient patient and patient's family member nobody is in the room. Plan of care discussed with the bedside SURAJ العلي [place] records are still pending. Changes from previous H/P or p: No Changes Eyes: No Pain, No Vision change, No Conjunctivae inflammation, No Eyelid inflammation, No Other, No Redness ENT: No Ear pain, No Ear discharge, No Nose pain, No Nose discharge, No Nose congestion, No Mouth pain, No Mouth swelling, No Throat pain, No Throat swelling, No Other Cardiovascular: No Chest Pain, No Palpitations, No Orthopnea, No Paroxysmal Noc. Dyspnea, No Edema, No Lt Headedness, No Other Respiratory: No Cough, No Dry; Shortness of breath; No SOB with excertion, No Wheezing, No Hemoptysis, No Pleuritic Pain, No Sputum, No Other Gastrointestinal: No Nausea, No Vomiting, No Abdominal Pain, No Diarrhea, No Constipation, No Melena, No Hematochezia, No Other Genitourinary: No Dysuria, No Frequency, No Incontinence, No Hematuria, No Retention, No Other Musculoskeletal: No other, No neck pain, No shoulder pain, No arm pain, No back pain, No hand pain, No leg pain, No foot pain Skin: No Rash, No Lesions, No Jaundice, No Bruising, No Other Objective Vitals Vital Signs Date Time Temp Pulse Resp B/P (MAP) Pulse Ox O2 Delivery O2 Flow Rate FiO2 02/03/25 13:00 98.2 69 18 125/75 (92) 99 98.2 02/03/25 12:20 Room Air* 0 21 Intake/Output Intake and Output 02/03/25 07:00 Intake Total 1650 ml Balance 1650 ml Intake Oral 1400 ml IV Total 250 ml # Voids 4 # Bowel Movements 1 Medications Current Medications Medications Dose Ordered Sig/Mihir Route Start Time Stop Time Status Last Admin Dose Admin Albuterol 2.5 mg Q4HPRN PRN NEB 01/31/25 20:45 Ipratropium [place] 0.5 mg Q4HPRN PRN NEB 01/31/25 20:45 Acetaminophen/ Hydrocodone Bitart 1 tab Q4HP PRN PO 01/31/25 20:45 02/01/25 11:44 1 TAB Ondansetron HCl 4 mg Q4HP PRN IV 01/31/25 20:45 02/01/25 16:01 4 MG Docusate Sodium 100 mg BIDPRN PRN PO 01/31/25 20:45 Acetaminophen 650 mg Q6HP PRN PO 01/31/25 20:45 02/01/25 18:16 650 MG Nitroglycerin 0.4 mg Q5MINP PRN SL 01/31/25 23:00 Morphine Sulfate 2 mg Q30M PRN IV 01/31/25 23:00 Melatonin 5 mg HS PO 02/01/25 22:00 02/02/25 21:53 5 MG Alprazolam 0.5 mg Q8HPRN PRN PO 02/01/25 15:45 02/02/25 10:37 0.5 MG Azithromycin 250 ml @ 125 mls/hr DAILY@2000 IV 02/02/25 20:00 02/02/25 20:05 125 MLS/HR Laboratory Results Laboratory Tests 02/01/25 08:40 Urinalysis Test 01/31/25 17:00 Urine Color Colorless (Yellow) Urine Clarity Clear (Clear) Urine pH 5.5 (5.0-9.0) Urine Specific [place] 1.007 (1.001-1.035) Urine Protein Negative (Negative) Urine Ketones Negative (Negative) Urine Blood Negative /uL (Negative) Urine Nitrite Negative (Negative) Urine Bilirubin Negative (Negative) Urine Urobilinogen Normal mg/dL (Negative) Urine Leukocyte Esterase Negative /uL (Negative) Urine RBC 1 /hpf (0 - 4) Urine Microscopic WBC 2 /HPF (0-5) Urine Squamous Epithelial Cells Few /hpf (<5) Urine Bacteria Many /hpf (None Seen) H Urine Glucose Normal mg/dL (Normal) Assessment/Plan Assessment/Plan 81-year-old female with a known history of chronic anemia, presented to the hospital with a complaining of fainting spells on and off. 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 Currently we are waiting for the records from [facility]. Also patient was told by mother that she was treated for TB when she was a child for one year. 1. Recent positive QuantiFERON as an outpatient, rule out tuberculosis although clinical suspicion is low 2. Severe anemia status post 2 units of packed RBC 3. Fainting spells suspect anxiety disorder 4. Bilateral hilar adenopathy -checks sputum for AFB x3, QuantiFERON gold. Appreciated Infectious Disease recommendations., add anxiolytic medications -request records from [facility]. Plan discussed with: Other Date of Service: Feb 03, 2025 Billing Provider: KWABENA NICHOLAS MD Common Visit Codes: [id number] INP/OBS CARE(MOD) KWABENA NICHOLAS MD Feb 03, 2025 17:39
[2025-02-04] VITALS (12 sets, daily range): BP systolic 101–156; BP diastolic 60–80; PULSE 56–101; RESP 16–19; TEMP 97.7–98.6; O2SAT 98–100
--- NOTE | 2025-02-04 17:06 | DVHPN2 ---
Subjective Patient was seen and evaluated by me. Sputum for AFB samples are still pending. Changes from previous H/P or p: No Changes Eyes: No Pain, No Vision change, No Conjunctivae inflammation, No Eyelid inflammation, No Other, No Redness ENT: No Ear pain, No Ear discharge, No Nose pain, No Nose discharge, No Nose congestion, No Mouth pain, No Mouth swelling, No Throat pain, No Throat swelling, No Other Cardiovascular: No Chest Pain, No Palpitations, No Orthopnea, No Paroxysmal Noc. Dyspnea, No Edema, No Lt Headedness, No Other Respiratory: No Cough, No Dry; Shortness of breath; No SOB with excertion, No Wheezing, No Hemoptysis, No Pleuritic Pain, No Sputum, No Other Gastrointestinal: No Nausea, No Vomiting, No Abdominal Pain, No Diarrhea, No Constipation, No Melena, No Hematochezia, No Other Genitourinary: No Dysuria, No Frequency, No Incontinence, No Hematuria, No Retention, No Other Musculoskeletal: No other, No neck pain, No shoulder pain, No arm pain, No back pain, No hand pain, No leg pain, No foot pain Skin: No Rash, No Lesions, No Jaundice, No Bruising, No Other Objective Vitals Vital Signs Date Time Temp Pulse Resp B/P (MAP) Pulse Ox O2 Delivery O2 Flow Rate FiO2 02/04/25 13:00 97.7 98 18 117/80 (92) 99 97.7 02/04/25 10:11 Room Air 02/04/25 10:11 0 21 Intake/Output Intake and Output 02/04/25 07:00 Intake Total 910 ml Balance 910 ml Intake Oral 910 ml # Voids 3 # Bowel Movements 3 Medications Current Medications Medications Dose Ordered Sig/Mihir Route Start Time Stop Time Status Last Admin Dose Admin Albuterol 2.5 mg Q4HPRN PRN NEB 01/31/25 20:45 Ipratropium [place] 0.5 mg Q4HPRN PRN NEB 01/31/25 20:45 Acetaminophen/ Hydrocodone Bitart 1 tab Q4HP PRN PO 01/31/25 20:45 02/01/25 11:44 1 TAB Ondansetron HCl 4 mg Q4HP PRN IV 01/31/25 20:45 02/01/25 16:01 4 MG Docusate Sodium 100 mg BIDPRN PRN PO 01/31/25 20:45 Acetaminophen 650 mg Q6HP PRN PO 01/31/25 20:45 02/01/25 18:16 650 MG Nitroglycerin 0.4 mg Q5MINP PRN SL 01/31/25 23:00 Morphine Sulfate 2 mg Q30M PRN IV 01/31/25 23:00 Melatonin 5 mg HS PO 02/01/25 22:00 02/03/25 20:57 5 MG Alprazolam 0.5 mg Q8HPRN PRN PO 02/01/25 15:45 02/03/25 21:12 0.5 MG Azithromycin 250 ml @ 125 mls/hr DAILY@2000 IV 02/02/25 20:00 02/03/25 20:57 125 MLS/HR Laboratory Results Laboratory Tests 02/01/25 08:40 Urinalysis Test 01/31/25 17:00 Urine Color Colorless (Yellow) Urine Clarity Clear (Clear) Urine pH 5.5 (5.0-9.0) Urine Specific [place] 1.007 (1.001-1.035) Urine Protein Negative (Negative) Urine Ketones Negative (Negative) Urine Blood Negative /uL (Negative) Urine Nitrite Negative (Negative) Urine Bilirubin Negative (Negative) Urine Urobilinogen Normal mg/dL (Negative) Urine Leukocyte Esterase Negative /uL (Negative) Urine RBC 1 /hpf (0 - 4) Urine Microscopic WBC 2 /HPF (0-5) Urine Squamous Epithelial Cells Few /hpf (<5) Urine Bacteria Many /hpf (None Seen) H Urine Glucose Normal mg/dL (Normal) Assessment/Plan Assessment/Plan 81-year-old female with a known history of chronic anemia, presented to the hospital with a complaining of fainting spells on and off. 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 Currently we are waiting for the records from [facility]. Also patient was told by mother that she was treated for TB when she was a child for one year. 1. Recent positive QuantiFERON as an outpatient, rule out tuberculosis although clinical suspicion is low 2. Severe anemia status post 2 units of packed RBC 3. Fainting spells suspect anxiety disorder 4. Bilateral hilar adenopathy -checks sputum for AFB x3, QuantiFERON gold. Appreciated Infectious Disease recommendations., add anxiolytic medications -request records from [facility] which is still pending. Plan discussed with: Patient Date of Service: Feb 04, 2025 Billing Provider: KWABENA NICHOLAS MD Common Visit Codes: [id number] INP/OBS CARE(MOD) KWABENA NICHOLAS MD Feb 04, 2025 17:06
--- NOTE | 2025-02-04 18:31 | DVHPN2 ---
Consult Progress Note Date Seen: Feb 04, 2025 Subjective Patient reports: No new complaints Other Systems: History of Present Illness 44 F with PMH of anemia, menorhhagia, presented with complaints of fainting spells since August, associated with episodes of shortness of breath, sweating. Patient mentioned that she has generalized fatigue since August with loss of appetite and weight loss. Patient does not remember the exact amount of weight loss. She also mentioned we had dry cough with a occasional cough with sputum since September. 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 Patient mentioned that she had BCG vaccine in childhood and was told by mother that she was treated for TB when she was a child for one year. He denied any other exposure of TB, denied any travel outside of the country. She denied symptoms of evening sweats, fever, chills. She denied any chest pain, palpitation, orthopnea, headache, seizures, nausea, vomiting. Past medical history Anemia, menorrhagia Past surgical history Tubal ligation 1999 Social history Patient lives with her kid Smokes cigarettes 5-8 cigarettes per day since teenager Occasional marijuana and alcohol use Denied any other drugs Medication history No active medications Sexual history Not sexually active for last one year, history of multiple partners Menstrual history Regular cycles Menses last eight days, normal flow Allergic history Patient mentioned allergic to penicillin, Ancef, describes as severe with itching, hives, mentions "we will after taking penicillin" Objective vital signs Vital Sign Date Time Temp Pulse Resp B/P (MAP) Pulse Ox O2 Delivery O2 Flow Rate FiO2 02/04/25 17:00 98.0 62 18 119/69 (86) 100 98.0 02/04/25 10:11 Room Air 02/04/25 10:11 0 21 Total Intake and Output 02/03/25 02/03/25 02/04/25 15:00 23:00 07:00 Intake Total 660 ml 250 ml Balance 660 ml 250 ml medications Current Medications Medications Dose Ordered Sig/Mihir Route Start Time Stop Time Status Last Admin Dose Admin Albuterol 2.5 mg Q4HPRN PRN NEB 01/31/25 20:45 Ipratropium [place] 0.5 mg Q4HPRN PRN NEB 01/31/25 20:45 Acetaminophen/ Hydrocodone Bitart 1 tab Q4HP PRN PO 01/31/25 20:45 02/01/25 11:44 1 TAB Ondansetron HCl 4 mg Q4HP PRN IV 01/31/25 20:45 02/01/25 16:01 4 MG Docusate Sodium 100 mg BIDPRN PRN PO 01/31/25 20:45 Acetaminophen 650 mg Q6HP PRN PO 01/31/25 20:45 02/01/25 18:16 650 MG Nitroglycerin 0.4 mg Q5MINP PRN SL 01/31/25 23:00 Morphine Sulfate 2 mg Q30M PRN IV 01/31/25 23:00 Melatonin 5 mg HS PO 02/01/25 22:00 02/03/25 20:57 5 MG Alprazolam 0.5 mg Q8HPRN PRN PO 02/01/25 15:45 02/03/25 21:12 0.5 MG Azithromycin 250 ml @ 125 mls/hr DAILY@2000 IV 02/02/25 20:00 02/03/25 20:57 125 MLS/HR Examination: GENERAL:Normal, HEENT:Normal, NECK:Abnormal (Submental LAD tender), LUNGS:Normal, CVS:Normal, MSK:Normal, SKIN:Abnormal ( Black Macular spots on multiple distributions on bilateral legs), NEURO:Normal laboratory and microbiology Laboratory Tests 02/01/25 08:40 Test 02/01/25 08:40 Range/Units Serum Glucose 86 74-106 mg/dL Problem List/Assessment/Plan Problem List/Assessment/Plan # rule out TB -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 # severe symptomatic anemia requiring blood transfusion # Sickle Cell Trait Plan -obtain medical records from [facility] -will repeat Tb gold quantiferon, awaiting results -will order 3X AFB 8hrs and MTB PCR, awaiting results -HIV, HbA1c -will order azithromycin for concern for atypical pneumonia ( pt is active smoker, increased risk in underlying lung condition) -will order COVID 19 infection, Aspergillus, and Coccidiomycosis panel, awaiting full results -Other differentials include non-infectious causes : Sarcoidosis ( Considering her symptoms and hilar LAD), Lymphoma Keep patient in isolation and airborne precautions till all the TB workup results come back. No active indications of tubercular antimicrobials as of now. consider nicotine patch as patient is active smoker Case discussed with Dr Cristina - ---Addendum Dr. Juliet Cristina Patient is a 44 year old female with a past medical history of anemia , maharaja , fainting spells since August . presents with SOB and sweating, having about 10 lbs of weight loss , cough , and sputum since September . Was told by [facility] that she was in direct contact with another patient that was positive for Tb and then developed a positive quantifier . Patient states she was given the BCG vaccine , however she was born and raised in [place]. Has no travel history , Labs are normal . Has a notable submental lymph node that is on her left side and is enlarged. Physical exams shows crackles in lungs bilaterally . chest xray shows higher lymphadenopathy . 02/04: continues to do well today , did experience night sweat and abnormal uterine bleeding episodes overnight. Is notable to be mildly tachycardic and has some tenderness at sub mental lymph node . quantifier gold is positive so will need to complete the rule out as that adds to the suspicion , HIV , aspergillus , coxitides antibodies serologies are still pending . Covid -19 is negative Plan : - continue AFB sputum x3 , MTB PCR x2 for TB rule out TB - given the risk factors and known active case of TB at [facility] would do a full TB rule out for this patient - continue azithromycin , stop ceftriaxone - recommend an ultrasound of submental area to confirm this is indeed a lymph node and not a neck abscess - can treat empirically for pneumonia for now - would include non infectious causes of hyler lymphadenopathy in the differential including lymphoma and sarcoidosis a reviewed history physical assessment and plan with Dr. Dia . In agreement with the above witht he exception to changes noted in the addendum Plan discussed with: Patient, Other Dietary Evaluation Review Recommendations by RD: Dietary education by RD Comments: 1) Encourage optimal PO intake 2) Refer to outpatient RD for weight management 3) Follow-up with cardiology, hematology, and infectious disease 4) Continue to monitor I&O, labs, and skin integrity Expected Outcomes/Goals: 1) appetite and labs to improve 2) f/u in 3-5 days CC Plasma Assessment Blood Product Administration S: [id number] BESS DIA RESIDENT Feb 04, 2025 18:31 JULIET CRISTINA MD Feb 13, 2025 12:54
[2025-02-04] MEDS: AZITHROMYCIN 250 MG TAB PO ONE (22:09)
[2025-02-05] VITALS (11 sets, daily range): BP systolic 103–153; BP diastolic 56–94; PULSE 60–96; RESP 14–19; TEMP 97.9–98.2; O2SAT 94–100
--- NOTE | 2025-02-05 18:26 | DVHPN2 ---
Subjective Patient was seen and evaluated by me. Sputum for AFB samples are still pending. Changes from previous H/P or p: No Changes Eyes: No Pain, No Vision change, No Conjunctivae inflammation, No Eyelid inflammation, No Other, No Redness ENT: No Ear pain, No Ear discharge, No Nose pain, No Nose discharge, No Nose congestion, No Mouth pain, No Mouth swelling, No Throat pain, No Throat swelling, No Other Cardiovascular: No Chest Pain, No Palpitations, No Orthopnea, No Paroxysmal Noc. Dyspnea, No Edema, No Lt Headedness, No Other Respiratory: No Cough, No Dry; Shortness of breath; No SOB with excertion, No Wheezing, No Hemoptysis, No Pleuritic Pain, No Sputum, No Other Gastrointestinal: No Nausea, No Vomiting, No Abdominal Pain, No Diarrhea, No Constipation, No Melena, No Hematochezia, No Other Genitourinary: No Dysuria, No Frequency, No Incontinence, No Hematuria, No Retention, No Other Musculoskeletal: No other, No neck pain, No shoulder pain, No arm pain, No back pain, No hand pain, No leg pain, No foot pain Skin: No Rash, No Lesions, No Jaundice, No Bruising, No Other Objective Vitals Vital Signs Date Time Temp Pulse Resp B/P (MAP) Pulse Ox O2 Delivery O2 Flow Rate FiO2 02/05/25 17:00 () 02/05/25 10:00 Room Air 0.0 02/05/25 10:00 21 Intake/Output Intake and Output 02/05/25 07:00 Intake Total 1215 ml Balance 1215 ml Intake Oral 1190 ml IV Total 25 ml # Voids 3 # Bowel Movements 1 Medications Current Medications Medications Dose Ordered Sig/Mihir Route Start Time Stop Time Status Last Admin Dose Admin Albuterol 2.5 mg Q4HPRN PRN NEB 01/31/25 20:45 Ipratropium [place] 0.5 mg Q4HPRN PRN NEB 01/31/25 20:45 Acetaminophen/ Hydrocodone Bitart 1 tab Q4HP PRN PO 01/31/25 20:45 02/01/25 11:44 1 TAB Ondansetron HCl 4 mg Q4HP PRN IV 01/31/25 20:45 02/01/25 16:01 4 MG Docusate Sodium 100 mg BIDPRN PRN PO 01/31/25 20:45 Acetaminophen 650 mg Q6HP PRN PO 01/31/25 20:45 02/01/25 18:16 650 MG Nitroglycerin 0.4 mg Q5MINP PRN SL 01/31/25 23:00 Morphine Sulfate 2 mg Q30M PRN IV 01/31/25 23:00 Melatonin 5 mg HS PO 02/01/25 22:00 02/04/25 22:00 5 MG Alprazolam 0.5 mg Q8HPRN PRN PO 02/01/25 15:45 02/03/25 21:12 0.5 MG Azithromycin 500 mg DAILY@1999 PO 02/05/25 20:00 Laboratory Results Laboratory Tests 02/01/25 08:40 Urinalysis Test 01/31/25 17:00 Urine Color Colorless (Yellow) Urine Clarity Clear (Clear) Urine pH 5.5 (5.0-9.0) Urine Specific [place] 1.007 (1.001-1.035) Urine Protein Negative (Negative) Urine Ketones Negative (Negative) Urine Blood Negative /uL (Negative) Urine Nitrite Negative (Negative) Urine Bilirubin Negative (Negative) Urine Urobilinogen Normal mg/dL (Negative) Urine Leukocyte Esterase Negative /uL (Negative) Urine RBC 1 /hpf (0 - 4) Urine Microscopic WBC 2 /HPF (0-5) Urine Squamous Epithelial Cells Few /hpf (<5) Urine Bacteria Many /hpf (None Seen) H Urine Glucose Normal mg/dL (Normal) Microbiology Microbiology Date/Time Source Procedure Growth Status 02/04/25 09:30 Sputum AFB Broth Culture Pending Resulted 02/04/25 09:30 Sputum - Final Resulted 02/04/25 09:30 Sputum - Final Resulted 02/04/25 09:30 Sputum Acid Fast Bacilli Culture Pending Resulted Assessment/Plan Assessment/Plan 81-year-old female with a known history of chronic anemia, presented to the hospital with a complaining of fainting spells on and off. 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 Currently we are waiting for the records from [facility]. Also patient was told by mother that she was treated for TB when she was a child for one year. 1. Recent positive QuantiFERON as an outpatient, rule out tuberculosis although clinical suspicion is low 2. Severe anemia status post 2 units of packed RBC 3. Fainting spells suspect anxiety disorder 4. Bilateral hilar adenopathy -checks sputum for AFB x3, QuantiFERON gold. Appreciated Infectious Disease recommendations., add anxiolytic medications -request records from [facility] which is still pending. Plan discussed with: Patient Date of Service: Feb 05, 2025 Billing Provider: KWABENA NICHOLAS MD Common Visit Codes: [id number] INP/OBS CARE(MOD) KWABENA NICHOLAS MD Feb 05, 2025 18:26
[2025-02-05] MEDS: AZITHROMYCIN 250 MG TAB PO SCH (20:28)
[2025-02-06] VITALS (10 sets, daily range): BP systolic 91–139; BP diastolic 61–90; PULSE 57–102; RESP 17–20; TEMP 97.6–98.9; O2SAT 95–100
[2025-02-06] MEDS: PROMETHAZINE HCL 6.25 MG/5 ML ORAL SYRUP PO PRN (11:30)
--- NOTE | 2025-02-06 15:55 | DVHPN2 ---
Subjective Patient was seen and evaluated by me. Sputum for AFB samples are still pending. Bedside RN delirium we will call the microbiology and lab Changes from previous H/P or p: No Changes Eyes: No Pain, No Vision change, No Conjunctivae inflammation, No Eyelid inflammation, No Other, No Redness ENT: No Ear pain, No Ear discharge, No Nose pain, No Nose discharge, No Nose congestion, No Mouth pain, No Mouth swelling, No Throat pain, No Throat swelling, No Other Cardiovascular: No Chest Pain, No Palpitations, No Orthopnea, No Paroxysmal Noc. Dyspnea, No Edema, No Lt Headedness, No Other Respiratory: No Cough, No Dry; Shortness of breath; No SOB with excertion, No Wheezing, No Hemoptysis, No Pleuritic Pain, No Sputum, No Other Gastrointestinal: No Nausea, No Vomiting, No Abdominal Pain, No Diarrhea, No Constipation, No Melena, No Hematochezia, No Other Genitourinary: No Dysuria, No Frequency, No Incontinence, No Hematuria, No Retention, No Other Musculoskeletal: No other, No neck pain, No shoulder pain, No arm pain, No back pain, No hand pain, No leg pain, No foot pain Skin: No Rash, No Lesions, No Jaundice, No Bruising, No Other Objective Vitals Vital Signs Date Time Temp Pulse Resp B/P (MAP) Pulse Ox O2 Delivery O2 Flow Rate FiO2 02/06/25 13:00 98.9 75 19 124/80 (95) 97 98.9 02/06/25 10:36 Room Air* 0 21 Intake/Output Intake and Output 02/06/25 07:00 Intake Total 780 ml Output Total 350 ml Balance 430 ml Intake Oral 780 ml Output Urine Total 350 ml Medications Current Medications Medications Dose Ordered Sig/Mihir Route Start Time Stop Time Status Last Admin Dose Admin Albuterol 2.5 mg Q4HPRN PRN NEB 01/31/25 20:45 Ipratropium [place] 0.5 mg Q4HPRN PRN NEB 01/31/25 20:45 Acetaminophen/ Hydrocodone Bitart 1 tab Q4HP PRN PO 01/31/25 20:45 02/06/25 14:38 1 TAB Docusate Sodium 100 mg BIDPRN PRN PO 01/31/25 20:45 Acetaminophen 650 mg Q6HP PRN PO 01/31/25 20:45 02/01/25 18:16 650 MG Nitroglycerin 0.4 mg Q5MINP PRN SL 01/31/25 23:00 Morphine Sulfate 2 mg Q30M PRN IV 01/31/25 23:00 Melatonin 5 mg HS PO 02/01/25 22:00 02/05/25 21:59 5 MG Alprazolam 0.5 mg Q8HPRN PRN PO 02/01/25 15:45 02/03/25 21:12 0.5 MG Azithromycin 500 mg DAILY@2000 PO 02/05/25 20:00 02/05/25 20:28 500 MG Ondansetron HCl 4 mg Q4HP PRN PO 02/06/25 15:15 Laboratory Results Laboratory Tests 02/01/25 08:40 Urinalysis Test 01/31/25 17:00 Urine Color Colorless (Yellow) Urine Clarity Clear (Clear) Urine pH 5.5 (5.0-9.0) Urine Specific [place] 1.007 (1.001-1.035) Urine Protein Negative (Negative) Urine Ketones Negative (Negative) Urine Blood Negative /uL (Negative) Urine Nitrite Negative (Negative) Urine Bilirubin Negative (Negative) Urine Urobilinogen Normal mg/dL (Negative) Urine Leukocyte Esterase Negative /uL (Negative) Urine RBC 1 /hpf (0 - 4) Urine Microscopic WBC 2 /HPF (0-5) Urine Squamous Epithelial Cells Few /hpf (<5) Urine Bacteria Many /hpf (None Seen) H Urine Glucose Normal mg/dL (Normal) Microbiology Microbiology Date/Time Source Procedure Growth Status 02/04/25 09:30 Sputum AFB Broth Culture Pending Resulted 02/04/25 09:30 Sputum - Final Resulted 02/04/25 09:30 Sputum - Final Resulted 02/04/25 09:30 Sputum Acid Fast Bacilli Culture Pending Resulted Assessment/Plan Assessment/Plan 81-year-old female with a known history of chronic anemia, presented to the hospital with a complaining of fainting spells on and off. 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 Currently we are waiting for the records from [facility]. Also patient was told by mother that she was treated for TB when she was a child for one year. 1. Recent positive QuantiFERON as an outpatient, rule out tuberculosis although clinical suspicion is low 2. Severe anemia status post 2 units of packed RBC 3. Fainting spells suspect anxiety disorder 4. Bilateral hilar adenopathy -follow up on sputum for AFB as well as QuantiFERON gold test. Appreciated Infectious Disease recommendations., anxiolytic medications -plan of care discussed with the patient who understand verbalized understanding and agreeable to plan Plan discussed with: Patient My Orders Orders - KWABENA NICHOLAS MD Procedure Category Date Status Time Transfer Orders XFER 02/06/25 Transmitted 15:02 Ondansetron Po PHA 02/06/25 In Process (Zofran Po) 15:15 Date of Service: Feb 06, 2025 Billing Provider: KWABENA NICHOLAS MD Common Visit Codes: [id number] INP/OBS CARE(MOD) KWABENA NICHOLAS MD Feb 06, 2025 15:55
[2025-02-07] VITALS (7 sets, daily range): BP systolic 91–125; BP diastolic 55–66; PULSE 58–75; RESP 14–18; TEMP 97.8–98.5; O2SAT 93–99
[2025-02-07] MEDS: ONDANSETRON ODT 4 MG TAB PO PRN (08:46)
[2025-02-07 11:07] LABS: QuantiFERON-TB Gold Plus Positive (Negative)
[2025-02-07 13:07] LABS: Aspergillus flavus Negative (Neg:<1:1); Aspergillus fumigatus Negative (Neg:<1:1); Aspergillus niger Negative (Neg:<1:1)
--- NOTE | 2025-02-07 15:35 | DVHPN2 ---
Subjective Patient was seen and evaluated by me. Sputum for AFB samples are still pending. Bedside RN piper has been calling the lab and microbiology to check on sputum for AFB. Changes from previous H/P or p: No Changes Eyes: No Pain, No Vision change, No Conjunctivae inflammation, No Eyelid inflammation, No Other, No Redness ENT: No Ear pain, No Ear discharge, No Nose pain, No Nose discharge, No Nose congestion, No Mouth pain, No Mouth swelling, No Throat pain, No Throat swelling, No Other Cardiovascular: No Chest Pain, No Palpitations, No Orthopnea, No Paroxysmal Noc. Dyspnea, No Edema, No Lt Headedness, No Other Respiratory: No Cough, No Dry; Shortness of breath; No SOB with excertion, No Wheezing, No Hemoptysis, No Pleuritic Pain, No Sputum, No Other Gastrointestinal: No Nausea, No Vomiting, No Abdominal Pain, No Diarrhea, No Constipation, No Melena, No Hematochezia, No Other Genitourinary: No Dysuria, No Frequency, No Incontinence, No Hematuria, No Retention, No Other Musculoskeletal: No other, No neck pain, No shoulder pain, No arm pain, No back pain, No hand pain, No leg pain, No foot pain Skin: No Rash, No Lesions, No Jaundice, No Bruising, No Other Objective Vitals Vital Signs Date Time Temp Pulse Resp B/P (MAP) Pulse Ox O2 Delivery O2 Flow Rate FiO2 02/07/25 13:00 98.5 60 14 125/66 (85) 99 98.5 02/07/25 10:00 Room Air* 0 21 Intake/Output Intake and Output 02/07/25 06:59 Intake Total 1310 ml Balance 1310 ml Intake Oral 1310 ml # Voids 8 Medications Current Medications Medications Dose Ordered Sig/Mihir Route Start Time Stop Time Status Last Admin Dose Admin Albuterol 2.5 mg Q4HPRN PRN NEB 01/31/25 20:45 Ipratropium [place] 0.5 mg Q4HPRN PRN NEB 01/31/25 20:45 Acetaminophen/ Hydrocodone Bitart 1 tab Q4HP PRN PO 01/31/25 20:45 02/07/25 13:27 1 TAB Docusate Sodium 100 mg BIDPRN PRN PO 01/31/25 20:45 Acetaminophen 650 mg Q6HP PRN PO 01/31/25 20:45 02/01/25 18:16 650 MG Nitroglycerin 0.4 mg Q5MINP PRN SL 01/31/25 23:00 Morphine Sulfate 2 mg Q30M PRN IV 01/31/25 23:00 Melatonin 5 mg HS PO 02/01/25 22:00 02/06/25 22:20 5 MG Alprazolam 0.5 mg Q8HPRN PRN PO 02/01/25 15:45 02/07/25 13:27 0.5 MG Azithromycin 500 mg DAILY@2000 PO 02/05/25 20:00 02/06/25 21:07 500 MG Ondansetron HCl 4 mg Q4HP PRN PO 02/06/25 15:15 02/07/25 08:46 4 MG Laboratory Results Laboratory Tests 02/01/25 08:40 Urinalysis Test 01/31/25 17:00 Urine Color Colorless (Yellow) Urine Clarity Clear (Clear) Urine pH 5.5 (5.0-9.0) Urine Specific [place] 1.007 (1.001-1.035) Urine Protein Negative (Negative) Urine Ketones Negative (Negative) Urine Blood Negative /uL (Negative) Urine Nitrite Negative (Negative) Urine Bilirubin Negative (Negative) Urine Urobilinogen Normal mg/dL (Negative) Urine Leukocyte Esterase Negative /uL (Negative) Urine RBC 1 /hpf (0 - 4) Urine Microscopic WBC 2 /HPF (0-5) Urine Squamous Epithelial Cells Few /hpf (<5) Urine Bacteria Many /hpf (None Seen) H Urine Glucose Normal mg/dL (Normal) Microbiology Microbiology Date/Time Source Procedure Growth Status 02/05/25 09:20 Sputum AFB Broth Culture Pending Resulted 02/05/25 09:20 Sputum - Final Resulted 02/05/25 09:20 Sputum - Final Resulted 02/05/25 09:20 Sputum Acid Fast Bacilli Culture Pending Resulted Assessment/Plan Assessment/Plan 81-year-old female with a known history of chronic anemia, presented to the hospital with a complaining of fainting spells on and off. 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 1. Recent positive QuantiFERON as an outpatient, rule out tuberculosis although clinical suspicion is low 2. Severe anemia status post 2 units of packed RBC 3. Fainting spells suspect anxiety disorder 4. Bilateral hilar adenopathy likely reactive -QuantiFERON gold test is positive BS still waiting for sputum for AFB x3 as well as MTB. Appreciated Infectious Disease recommendations., anxiolytic medications -plan of care discussed with the patient who understand verbalized understanding and agreeable to plan, patient is requesting stronger pain medication for chronic pain syndrome. Plan discussed with: Patient My Orders Orders - KWABENA NICHOLAS MD Procedure Category Date Status Time Mtb Complex Pcr YUID 02/07/25 Logged 15:09 Date of Service: Feb 07, 2025 Billing Provider: KWABENA NICHOLAS MD Common Visit Codes: [id number] INP/OBS CARE(MOD) KWABENA NICHOLAS MD Feb 07, 2025 15:35
[2025-02-07] MEDS: HYDROmorphone HCL 2 MG TAB PO PRN (18:55)
--- NOTE | 2025-02-07 19:35 | DVHPN2 ---
Consult Progress Note Date Seen: Feb 07, 2025 Subjective Patient reports: No new complaints (night sweats) Objective vital signs Vital Sign Date Time Temp Pulse Resp B/P (MAP) Pulse Ox O2 Delivery O2 Flow Rate FiO2 02/07/25 17:00 97.8 58 14 122/57 (78) 93 97.8 02/07/25 10:00 Room Air* 0 21 Total Intake and Output 02/06/25 02/06/25 02/07/25 15:00 23:00 07:00 Intake Total 810 ml 500 ml Balance 810 ml 500 ml medications Current Medications Medications Dose Ordered Sig/Mihir Route Start Time Stop Time Status Last Admin Dose Admin Albuterol 2.5 mg Q4HPRN PRN NEB 01/31/25 20:45 Ipratropium [place] 0.5 mg Q4HPRN PRN NEB 01/31/25 20:45 Acetaminophen/ Hydrocodone Bitart 1 tab Q4HP PRN PO 01/31/25 20:45 02/07/25 13:27 1 TAB Docusate Sodium 100 mg BIDPRN PRN PO 01/31/25 20:45 Acetaminophen 650 mg Q6HP PRN PO 01/31/25 20:45 02/01/25 18:16 650 MG Nitroglycerin 0.4 mg Q5MINP PRN SL 01/31/25 23:00 Melatonin 5 mg HS PO 02/01/25 22:00 02/06/25 22:20 5 MG Alprazolam 0.5 mg Q8HPRN PRN PO 02/01/25 15:45 02/07/25 13:27 0.5 MG Azithromycin 500 mg DAILY@1999 PO 02/05/25 20:00 02/06/25 21:07 500 MG Ondansetron HCl 4 mg Q4HP PRN PO 02/06/25 15:15 02/07/25 08:46 4 MG Hydromorphone HCl 2 mg Q6HP PRN PO 02/07/25 15:30 02/07/25 18:55 2 MG laboratory and microbiology Laboratory Tests 02/01/25 08:40 Test 02/01/25 08:40 Range/Units Serum Glucose 86 74-106 mg/dL Problem List/Assessment/Plan Problem List/Assessment/Plan # rule out Active TB # Gold quaniteferon Test positive -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 # severe symptomatic anemia requiring blood transfusion # Sickle Cell Trait Plan -obtain medical records from [facility] -will repeat Tb gold quantiferon, awaiting results -will order 3X AFB 8hrs and MTB PCR, awaiting results -HIV, HbA1c -will order azithromycin for concern for atypical pneumonia ( pt is active smoker, increased risk in underlying lung condition) -will order COVID 19 infection, Aspergillus, and Coccidiomycosis panel, awaiting full results -Other differentials include non-infectious causes : Sarcoidosis ( Considering her symptoms and hilar LAD), Lymphoma Keep patient in isolation and airborne precautions till all the TB workup results come back. No active indications of tubercular antimicrobials as of now. consider nicotine patch as patient is active smoker Case discussed with Dr Cristina - ---Addendum Dr. Juliet Cristina Patient is a 44 year old female with a past medical history of anemia , maharaja , fainting spells since August . presents with SOB and sweating, having about 10 lbs of weight loss , cough , and sputum since September . Was told by [place] that she was in direct contact with another patient that was positive for Tb and then developed a positive quantifier . Patient states she was given the BCG vaccine , however she was born and raised in [place]. Has no travel history , Labs are normal . Has a notable submental lymph node that is on her left side and is enlarged. Physical exams shows crackles in lungs bilaterally . chest xray shows higher lymphadenopathy . 02/04: continues to do well today , did experience night sweat and abnormal uterine bleeding episodes overnight. Is notable to be mildly tachycardic and has some tenderness at sub mental lymph node . quantifier gold is positive so will need to complete the rule out as that adds to the suspicion , HIV , aspergillus , coxitides antibodies serologies are still pending . Covid -19 is negative 02/07: menstrual bleeding overnight and is feeling lightheaded and dizzy this morning. No mild abdominal tenderness . Being evaluated by gynecology. Renal ultrasound shows a mild hydronephrosis of the right kidney . Abdomen and pelvis CT shows no hydronephrosis of either kidney and an enlarged uterus that is thought to be a form from multiple fibroids Plan : - continue AFB sputum x3 , MTB PCR x2 for TB rule out TB - given the risk factors and known active case of TB at [facility] would do a full TB rule out for this patient - continue azithromycin , stop ceftriaxone - recommend an ultrasound of submental area to confirm this is indeed a lymph node and not a neck abscess - can treat empirically for pneumonia for now - would include non infectious causes of hyler lymphadenopathy in the differential including lymphoma and sarcoidosis a reviewed history physical assessment and plan with Dr. Dia . In agreement with the above with the exception to changes noted in the addendum Plan discussed with: Patient, Other Dietary Evaluation Review Recommendations by RD: Dietary education by RD Comments: 1) Encourage optimal PO intake 2) Refer to outpatient RD for weight management 3) Follow-up with cardiology, hematology, and infectious disease 4) Continue to monitor I&O, labs, and skin integrity Expected Outcomes/Goals: 1) appetite and labs to improve 2) f/u in 3-5 days CC Plasma Assessment Blood Product Administration S: [id number] BESS DIA Feb 07, 2025 19:35 JULIET CRISTINA MD Feb 13, 2025 12:59
[2025-02-07 20:07] LABS: Coccidioides CF Antibody <1:2 (<1:2)
[2025-02-08] VITALS (12 sets, daily range): BP systolic 97–130; BP diastolic 62–90; PULSE 52–100; RESP 16–20; TEMP 97.3–98; O2SAT 83–100
[2025-02-08] MEDS: IPRATROPIUM BROM 0.5 MG/2.5ML INH SOL NEB PRN (00:25)
[2025-02-08] MEDS: ALBUTEROL SULF 2.5 MG/0.5ML(0.5%) NEB SOLN NEB PRN (00:26)
[2025-02-08 05:21] LABS: COVID19 ANTIGEN SOFIA FIA NEGATIVE (NEGATIVE)
[2025-02-08 06:45] LABS: Urine Bacteria FEW /hpf (None Seen); Urine Blood 3+ /uL (Negative); Urine Color Red (Yellow); Urine Protein, UAD 2+ (Negative); Urine Specific Gravity 1.012 (1.001-1.035); Urine Squamous Epithelial Cell None Seen /hpf (<5); Urine Urobilinogen Normal (Negative); Urine WBC 24 /HPF (0-5)
[2025-02-08 06:48] LABS: Urine Clarity Cloudy (Clear)
[2025-02-08 09:09] LABS: Basophils # (auto) 0.1 10 ^3/uL (0-0.2); Eosinophils # (auto) 0.2 10 ^3/uL (0-0.8); Eosinophils % (auto) 2.8 % (0.0-7.0); Neutrophils # (auto) 4.4 10 ^3/uL (1.6-8.6); Nucleated Red Blood Cells % 0.1 %; Platelet Count (auto) 162 10^3/uL (140-450); White Blood Cell 6.8 10^3/uL (4.4-10.8)
[2025-02-08 09:11] LABS: Basophils % (auto) 0.9 % (0.0-2.0); Hemoglobin 9.4 g/dL (12.2-16.2); Lymphocytes # (auto) 1.5 10 ^3/uL (0.4-5.4); Lymphocytes % (auto) 22.3 % (10.0-50.0); Mean Corpuscular Hemoglobin 21.5 pg (28.0-32.0); Mean Corpuscular Hgb Conc. 32.3 g/dL (32.0-36.0); Mean Corpuscular Volume 66.5 fL (80.0-100.0); Monocytes # (auto) 0.7 10 ^3/uL (0-1.3); Monocytes % (auto) 9.8 % (0.0-12.0); Neutrophils % (auto) 64.2 % (37.0-80.0); Red Blood Cells 4.36 10^6/uL (4.0-5.20); Red Cell Distribution Width 24.1 % (11.8-14.3)
[2025-02-08 09:24] LABS: Chloride 106 mmol/L (98-107); Potassium 4.6 mmol/L (3.5-5.1); Sodium 142 mmol/L (136-145)
[2025-02-08 09:25] LABS: Anion Gap 11 (5-15); Calcium 10.3 mg/dL (8.7-10.4); Carbon Dioxide 25 mmol/L (20-31)
[2025-02-08 09:30] LABS: BUN/Creatinine Ratio 15.1 (10.0-20.0); Blood Urea Nitrogen 14 mg/dL (9-23); Glucose 87 mg/dL (74-106)
[2025-02-08] MEDS: CIPROFLOXACIN HCL 500 MG TAB PO ONE (13:15)
--- NOTE | 2025-02-08 14:06 | DVHPN2 ---
Subjective Patient was seen and evaluated by me. Sputum for AFB samples are still pending. Bedside RN piper has been calling the lab and microbiology to check on sputum for AFB. RT will collect MTB today. Changes from previous H/P or p: No Changes Eyes: No Pain, No Vision change, No Conjunctivae inflammation, No Eyelid inflammation, No Other, No Redness ENT: No Ear pain, No Ear discharge, No Nose pain, No Nose discharge, No Nose congestion, No Mouth pain, No Mouth swelling, No Throat pain, No Throat swelling, No Other Cardiovascular: No Chest Pain, No Palpitations, No Orthopnea, No Paroxysmal Noc. Dyspnea, No Edema, No Lt Headedness, No Other Respiratory: No Cough, No Dry; Shortness of breath; No SOB with excertion, No Wheezing, No Hemoptysis, No Pleuritic Pain, No Sputum, No Other Gastrointestinal: No Nausea, No Vomiting, No Abdominal Pain, No Diarrhea, No Constipation, No Melena, No Hematochezia, No Other Genitourinary: No Dysuria, No Frequency, No Incontinence, No Hematuria, No Retention, No Other Musculoskeletal: No other, No neck pain, No shoulder pain, No arm pain, No back pain, No hand pain, No leg pain, No foot pain Skin: No Rash, No Lesions, No Jaundice, No Bruising, No Other Objective Vitals Vital Signs Date Time Temp Pulse Resp B/P (MAP) Pulse Ox O2 Delivery O2 Flow Rate FiO2 02/08/25 13:00 98.0 100 20 117/79 (92) 96 98.0 02/08/25 10:18 Room Air 0.0 02/08/25 10:18 21 Intake/Output Intake and Output 02/08/25 07:00 Intake Total 1000 ml Balance 1000 ml Intake Oral 1000 ml # Voids 6 # Bowel Movements 3 Medications Current Medications Medications Dose Ordered Sig/Mihir Route Start Time Stop Time Status Last Admin Dose Admin Albuterol 2.5 mg Q4HPRN PRN NEB 01/31/25 20:45 02/08/25 10:18 2.5 MG Ipratropium [place] 0.5 mg Q4HPRN PRN NEB 01/31/25 20:45 02/08/25 10:18 0.5 MG Acetaminophen/ Hydrocodone Bitart 1 tab Q4HP PRN PO 01/31/25 20:45 02/08/25 10:35 1 TAB Docusate Sodium 100 mg BIDPRN PRN PO 01/31/25 20:45 Acetaminophen 650 mg Q6HP PRN PO 01/31/25 20:45 02/07/25 21:52 650 MG Nitroglycerin 0.4 mg Q5MINP PRN SL 01/31/25 23:00 Melatonin 5 mg HS PO 02/01/25 22:00 02/07/25 21:41 5 MG Alprazolam 0.5 mg Q8HPRN PRN PO 02/01/25 15:45 02/08/25 06:20 0.5 MG Azithromycin 500 mg DAILY@2000 PO 02/05/25 20:00 02/07/25 20:17 500 MG Ondansetron HCl 4 mg Q4HP PRN PO 02/06/25 15:15 02/08/25 00:18 4 MG Hydromorphone HCl 2 mg Q6HP PRN PO 02/07/25 15:30 02/08/25 08:20 2 MG Ciprofloxacin 500 mg Q12HR PO 02/08/25 22:00 Laboratory Results Laboratory Tests 02/08/25 08:41 Chemistry Test 02/08/25 08:41 Calcium Level 10.3 mg/dL (8.7-10.4) Urinalysis Test 02/08/25 06:26 Urine Color Red (Yellow) H Urine Clarity Cloudy (Clear) H Urine pH 6.0 (5.0-9.0) Urine Specific [place] 1.012 (1.001-1.035) Urine Protein 2+ (Negative) H Urine Ketones Negative (Negative) Urine Blood 3+ /uL (Negative) H Urine Nitrite Negative (Negative) Urine Bilirubin Negative (Negative) Urine Urobilinogen Normal mg/dL (Negative) Urine Leukocyte Esterase 2+ /uL (Negative) Urine RBC 3331 /hpf (0 - 4) Urine Microscopic WBC 24 /HPF (0-5) H Urine Squamous Epithelial Cells None seen /hpf (<5) Urine Bacteria Few /hpf (None Seen) H Urine Glucose Normal mg/dL (Normal) Microbiology Microbiology Date/Time Source Procedure Growth Status 02/05/25 09:20 Sputum AFB Broth Culture Pending Resulted 02/05/25 09:20 Sputum - Final Resulted 02/05/25 09:20 Sputum - Final Resulted 02/05/25 09:20 Sputum Acid Fast Bacilli Culture Pending Resulted Assessment/Plan Assessment/Plan 81-year-old female with a known history of chronic anemia, presented to the hospital with a complaining of fainting spells on and off. 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 Patient is counseled complaining of burning urination and blood in the urine 1. Recent positive QuantiFERON as an outpatient, rule out tuberculosis although clinical suspicion is low 2. Severe anemia status post 2 units of packed RBC 3. Urinary tract infection with hematuria 4. Bilateral hilar adenopathy likely reactive 5. Anxiety disorder -QuantiFERON gold test is positive BS still waiting for sputum for AFB x3 as well as MTB. Appreciated Infectious Disease recommendations., anxiolytic medications -plan of care discussed with the patient who understand verbalized understanding and agreeable to plan, patient is requesting stronger pain medication for chronic pain syndrome. -add ciprofloxacin p.o. for urinary tract infection. Plan discussed with: Patient My Orders Orders - KWABENA NICHOLAS MD Procedure Category Date Status Time Mtb Complex Pcr YUDI 02/07/25 Logged 15:09 Hydromorphone Tablet PHA 02/07/25 In Process (Dilaudid Tablet) 15:30 Kidney US 02/08/25 Taken 13:05 Ciprofloxacin Tablet PHA 02/08/25 In Process (Cipro Tablet) 22:00 Date of Service: Feb 08, 2025 Billing Provider: KWABENA NICHOLAS MD Common Visit Codes: [id number] INP/OBS CARE(MOD) KWABENA NICHOLAS MD Feb 08, 2025 14:06
--- NOTE | 2025-02-08 14:36 | DVH ---
INDICATION: FLANK PAIN TECHNIQUE: Ultrasound kidney Multiple real-time sonographic images of the kidneys and bladder were ob tained. COMPARISON: None FINDINGS: The right kidney measures 12.6 cm in length, which is normal in size. There is normal echog enicity of the right kidney. Mild right hydronephrosis. The left kidney measures 9.94 cm in length, which is normal in size. There is normal echogenicity of the left kidney. No hydronephrosis. No large intraluminal masses are seen in the bladder. Prior to voiding the bladder volume measures vo lume 39.18 cc. Patient had no urge to void IMPRESSION: 1. Right kidney measures 12.6 cm and there appears to be mild hydronephrosis. 2. Left kidney measures 9.94 cm there is no hydronephrosis. 3. Bladder volume prevoid 39.18 ML
--- NOTE | 2025-02-08 18:27 | DVH ---
Exam: CT CT AB PEL WO CON-NO ORAL OR IV History: hydronephrosis Comparison Study: Renal ultrasound 02/08/2025 TECHNIQUE: Multidetector CT of the abdomen and pelvis without IV contrast. Axial, coronal and sagitta l multiplanar reformats were obtained from the axial data set by the technologist. Radiation Dose Information: CT Dose: CTDI volume is 10.22 mGy. Dose-length product is 514.87 mGy*cm FINDINGS: The lung bases are clear. Partially visualized heart is unremarkable. Mild splenomegaly. Otherwise, liver, spleen, gallbladder, pancreas and adrenal glands are unremarkab le. Kidneys and ureters are unremarkable. Limited evaluation of the urinary bladder due to decompressed state. Bulky heterogeneous uterus with multiple masslike lesions and partially calcified left-sided l esion which may represent fibroid uterus. Stomach is unremarkable. Small bowel loops unremarkable. Appendix is unremarkable. Moderate to large amount of fecal material within the colon. No evidence of intraperitoneal free air or free fluid. No evidence of aortic aneurysm. Shotty mesenteric lymph nodes. Small fat containing umbilical hernia. Soft tissues are unremarkable. No destructive osseous lesions are noted. IMPRESSION: No evidence of acute abdominopelvic abnormalities. No significant hydro nephrosis on CT. Constipation. Enlarged uterus which is thought to be from multiple fibroids. Pelvic ultrasound may be considered fo r further evaluation if clinically indicated.
--- NOTE | 2025-02-08 18:31 | DVHINCON2 ---
Date of service: Feb 08, 2025 Referring Physician Hospitalist Reason for Consultation hydronephrosis History of Present Illness History Source: Patient, RN Notes, MD Notes, Old Records Exam Limitations: No limitations HPI 44 yo female who presented for dyspnea. She is complaining of gross hematuria, and heavy irregular menstrual cycles. She is in isolation for potential TB exposure. She reports having TB as a child. To confirm hematuria vs menstruation I placed a 14 f licea catheter. Urine is crystal clear. During licea placement heavy menstruation was noted with clots. She is going through 10 or more pads daily. She is not complaining of any pain. She is pale. Home Meds No Active Prescriptions or Reported Meds Past Medical History Patient Family History: Diabetes mellitus G8 MOTHER Hypertension G8 MOTHER Review of Systems Pulmonary/Respiratory: Dyspnea H&P Exam Vital Signs Vital Signs Date Time Temp Pulse Resp B/P (MAP) Pulse Ox O2 Delivery O2 Flow Rate FiO2 02/08/25 17:00 97.4 98 17 125/81 (96) 99 97.4 02/08/25 10:18 Room Air 0.0 02/08/25 10:18 21 General Appeara: Well developed, Well nourished, Normal Appearance Pulmonary/Respiratory: Normal inspection Cardiovascular/Chest: Normal inspection Abdominal Exam: Soft Rectal Exam: Deferred Back Exam: Normal inspection Pelvic Exam: External exam normal, Active bleeding, Blood Neuro/Mental St: Alert, Oriented Appearance: Appropriate appearance, Appropriate insight Eye contact/ Speech: Cooperative, Good eye contact, Normal speech Skin Exam: Pallor Labs/Xrays CT results are not yet completed however I did review the images and there are no significant findings. The uterus is very enlarged with noted calcified fib roid and there is significant stool/gas. awaiting formal report. Labs Test 02/08/25 08:41 02/08/25 06:26 02/08/25 04:59 02/06/25 08:08 Range/Units White Blood Count 6.8 4.4-10.8 10^3/uL Red Blood Count 4.36 4.0-5.20 10^6/uL Hemoglobin 9.4 L 12.2-16.2 g/dL Hematocrit 29.0 L 36.0-46.0 % Mean Corpuscular Volume 66.5 L 80.0-100.0 fL Mean Corpuscular Hemoglobin 21.5 L 28.0-32.0 pg Mean Corpuscular Hemoglobin Concent 32.3 32.0-36.0 g/dL Red Cell Distribution Width 24.1 H 11.8-14.3 % Platelet Count 162 140-450 10^3/uL Mean Platelet Volume 9.0 6.9-10.8 fL Neutrophils (%) (Auto) 64.2 37.0-80.0 % Lymphocytes (%) (Auto) 22.3 10.0-50.0 % Monocytes (%) (Auto) 9.8 0.0-12.0 % Eosinophils (%) (Auto) 2.8 0.0-7.0 % Basophils (%) (Auto) 0.9 0.0-2.0 % Neutrophils # (Auto) 4.4 1.6-8.6 10 ^3/uL Lymphocytes # (Auto) 1.5 0.4-5.4 10 ^3/uL Monocytes # (Auto) 0.7 0-1.3 10 ^3/uL Eosinophils # (Auto) 0.2 0-0.8 10 ^3/uL Basophils # (Auto) 0.1 0-0.2 10 ^3/uL Nucleated Red Blood Cells 0.1 % Sodium Level 142 136-145 mmol/L Potassium Level 4.6 3.5-5.1 mmol/L Chloride Level 106 98-107 mmol/L Carbon Dioxide Level 25 20-31 mmol/L Anion Gap 11 5-15 Blood Urea Nitrogen 14 9-23 mg/dL Creatinine 0.93 0.550-1.02 mg/dL Glomerular Filtration Rate Calc 78 >90 mL/min BUN/Creatinine Ratio 15.1 10.0-20.0 Serum Glucose 87 74-106 mg/dL Calcium Level 10.3 8.7-10.4 mg/dL Urine Color Red H Yellow Urine Clarity Cloudy H Clear Urine pH 6.0 5.0-9.0 Urine Specific [place] 1.012 1.001-1.035 Urine Protein 2+ H Negative Urine Ketones Negative Negative Urine Blood 3+ H Negative /uL Urine Nitrite Negative Negative Urine Bilirubin Negative Negative Urine Urobilinogen Normal Negative mg/dL Urine Leukocyte Esterase 2+ Negative /uL Urine RBC 3331 0 - 4 /hpf Urine Microscopic WBC 24 H 0-5 /HPF Urine Squamous Epithelial Cells None seen <5 /hpf Urine Bacteria Few H None Seen /hpf Urine Glucose Normal Normal mg/dL SARS-CoV-2 Antigen (Rapid) Negative NEGATIVE Miscellaneous Referred Test (Refrg) Sent to [facility] Test 02/02/25 12:48 02/01/25 21:08 02/01/25 08:40 01/31/25 18:59 Range/Units TB Test (QFT) Gold Plus Positive H Negative TB Test (QFT) Nil 0.08 . IU/mL TB Test (QFT) Mitogen 5.06 . IU/mL TB Test (QFT) Antigen 1 1.40 . IU/mL TB Test (QFT) Antigen 2 1.13 . IU/mL TB Test (QFT) Criteria Comment . Coccidioides Antibody (Comp Fix) <1:2 <1:2 HIV (1&2) Antibody Negative Negative Aspergillus flavus Antibody Negative Neg:<1:1 Aspergillus fumigatus Antibody Negative Neg:<1:1 Aspergillus niger Antibody Negative Neg:<1:1 Erythrocyte Sedimentation Rate 17 0-20 mm/hr Hemoglobin A1c 5.2 <5.7 % A1C Total Bilirubin 1.9 H 0.2-1.0 mg/dL Aspartate Amino Transferase (AST) 20 13-40 U/L Alanine Aminotransferase (ALT) 14 7-40 U/L Alkaline Phosphatase 121 H 46-116 U/L Total Protein 7.3 5.7-8.2 g/dL Albumin 4.4 3.2-4.8 g/dL Troponin I High Sensitivity 3 L </=34 ng/L Test 01/31/25 15:49 Range/Units Platelet Estimate Adequate Hypochromasia (manual) Marked Anisocytosis (manual) Slight Microcytosis Marked D-Dimer, Quantitative 0.93 H 0.0-0.49 mg/L FEU B-Type Natriuretic Peptide 97.69 0-100 pg/mL Microbiology Date/Time Source Procedure Growth Status 02/05/25 09:20 Sputum AFB Broth Culture Pending Resulted 02/05/25 09:20 Sputum - Final Resulted 02/05/25 09:20 Sputum - Final Resulted 02/05/25 09:20 Sputum Acid Fast Bacilli Culture Pending Resulted Assessment/Plan Problem List: (1) Menorrhagia with irregular cycle (2) Bulky or enlarged uterus (3) Severe anemia Plan licea placed for patients peace of mind, she was sure it was bloody urine. Can remove at any time. recommend gynecology consultation. transfuse as indicated. signing off Plan discussed with: Patient, Other ELISE BILLY NP Feb 08, 2025 18:31
--- NOTE | 2025-02-08 19:05 | DVHPN2 ---
Consult Progress Note Date Seen: Feb 08, 2025 Subjective Patient reports: Other (mentions back pain) Objective vital signs Vital Sign Date Time Temp Pulse Resp B/P (MAP) Pulse Ox O2 Delivery O2 Flow Rate FiO2 02/08/25 17:00 97.4 98 17 125/81 (96) 99 97.4 02/08/25 10:18 Room Air 0.0 02/08/25 10:18 21 Total Intake and Output 02/07/25 02/07/25 02/08/25 15:00 23:00 07:00 Intake Total 500 ml 500 ml Balance 500 ml 500 ml medications Current Medications Medications Dose Ordered Sig/Mihir Route Start Time Stop Time Status Last Admin Dose Admin Albuterol 2.5 mg Q4HPRN PRN NEB 01/31/25 20:45 02/08/25 10:18 2.5 MG Ipratropium [place] 0.5 mg Q4HPRN PRN NEB 01/31/25 20:45 02/08/25 10:18 0.5 MG Acetaminophen/ Hydrocodone Bitart 1 tab Q4HP PRN PO 01/31/25 20:45 02/08/25 16:26 1 TAB Docusate Sodium 100 mg BIDPRN PRN PO 01/31/25 20:45 Acetaminophen 650 mg Q6HP PRN PO 01/31/25 20:45 02/07/25 21:52 650 MG Nitroglycerin 0.4 mg Q5MINP PRN SL 01/31/25 23:00 Melatonin 5 mg HS PO 02/01/25 22:00 02/07/25 21:41 5 MG Alprazolam 0.5 mg Q8HPRN PRN PO 02/01/25 15:45 02/08/25 06:20 0.5 MG Azithromycin 500 mg DAILY@2000 PO 02/05/25 20:00 02/07/25 20:17 500 MG Ondansetron HCl 4 mg Q4HP PRN PO 02/06/25 15:15 02/08/25 00:18 4 MG Hydromorphone HCl 2 mg Q6HP PRN PO 02/07/25 15:30 02/08/25 14:35 2 MG Ciprofloxacin 500 mg Q12HR PO 02/08/25 22:00 laboratory and microbiology Laboratory Tests 02/08/25 08:41 Test 02/08/25 08:41 Range/Units Serum Glucose 87 74-106 mg/dL Problem List/Assessment/Plan Problem List/Assessment/Plan # rule out Active TB # Gold quaniteferon Test positive -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 # severe symptomatic anemia requiring blood transfusion # Sickle Cell Trait Plan -obtain medical records from [facility] -will repeat Tb gold quantiferon, awaiting results -will order 3X AFB 8hrs and MTB PCR, awaiting results -HIV, HbA1c -will order azithromycin for concern for atypical pneumonia ( pt is active smoker, increased risk in underlying lung condition) -will order COVID 19 infection, Aspergillus, and Coccidiomycosis panel, awaiting full results -Other differentials include non-infectious causes : Sarcoidosis ( Considering her symptoms and hilar LAD), Lymphoma Keep patient in isolation and airborne precautions till all the TB workup results come back. No active indications of tubercular antimicrobials as of now. consider nicotine patch as patient is active smoker will order neck ultrasound we agree with oral ciprofloxacin we will order urine culture Case discussed with Dr Rivera - ---Addendum Dr. Juliet Rivera Patient is a 44 year old female with a past medical history of anemia , maharaja , fainting spells since August . presents with SOB and sweating, having about 10 lbs of weight loss , cough , and sputum since September . Was told by [place] that she was in direct contact with another patient that was positive for Tb and then developed a positive quantifier . Patient states she was given the BCG vaccine , however she was born and raised in [place]. Has no travel history , Labs are normal . Has a notable submental lymph node that is on her left side and is enlarged. Physical exams shows crackles in lungs bilaterally . chest xray shows higher lymphadenopathy . 02/04: continues to do well today , did experience night sweat and abnormal uterine bleeding episodes overnight. Is notable to be mildly tachycardic and has some tenderness at sub mental lymph node . quantifier gold is positive so will need to complete the rule out as that adds to the suspicion , HIV , aspergillus , coxitides antibodies serologies are still pending . Covid -19 is negative 02/07: menstrual bleeding overnight and is feeling lightheaded and dizzy this morning. No mild abdominal tenderness . Being evaluated by gynecology. Renal ultrasound shows a mild hydronephrosis of the right kidney . Abdomen and pelvis CT shows no hydronephrosis of either kidney and an enlarged uterus that is thought to be a form from multiple fibroids 02/08: Patient was seen by urology for hydronephrosis , licea catheter was placed. Gynecology has seen patient and recommends patient does a IR guided uterine artery embolization and use a TXA tablets to minimize menstrual loss bleeding . Patient is to undergo procedure. Sub mandibular ultrasound was done and showed an area of enlargement corresponding to a lymph node measuring at 1.1 x 0.8 x 0.7 cm Plan : - continue AFB sputum x3 , MTB PCR x2 for TB rule out TB - given the risk factors and known active case of TB at [facility] would do a full TB rule out for this patient - continue azithromycin - can treat empirically for pneumonia for now - would include non infectious causes of hyler lymphadenopathy in the differential including lymphoma and sarcoidosis a reviewed history physical assessment and plan with Dr. Dia . In agreement with the above with the exception to changes noted in the addendum Plan discussed with: Patient, Other Dietary Evaluation Review Recommendations by RD: Dietary education by RD Comments: 1) Encourage optimal PO intake 2) Refer to outpatient RD for weight management 3) Follow-up with cardiology, hematology, and infectious disease 4) Continue to monitor I&O, labs, and skin integrity Expected Outcomes/Goals: 1) appetite and labs to improve 2) f/u in 3-5 days CC Plasma Assessment Blood Product Administration S: [id number] BESS DIA Feb 08, 2025 19:05 JULIET RIVERA MD Feb 13, 2025 13:04
[2025-02-08] MEDS: CIPROFLOXACIN HCL 500 MG TAB PO SCH (21:21)
[2025-02-09] VITALS (15 sets, daily range): BP systolic 99–117; BP diastolic 46–69; PULSE 70–106; RESP 16–20; TEMP 98–98.6; O2SAT 92–100
--- NOTE | 2025-02-09 04:27 | DVH ---
ULTRASOUND SOFT TISSUE HEAD AND NECK CLINICAL INDICATION: Abscess, palpable midline mandibular lymph node TECHNIQUE: Multiple real time sonographic images of the area of concern submandibular region was perf ormed COMPARISON: None FINDINGS: In the midline submandibular region there is a prominent lymph node measuring 1.1 x 0.8 x 0.7 cm. IMPRESSION: 1. Area of palpable concern corresponds to prominent lymph node. Clinical follow-up is recommended.
[2025-02-09] MEDS: diphenhdrAMINE HCL 25 MG CAP PO PRN (14:15)
[2025-02-09] MEDS: METOCLOPRAMIDE HCL 10 MG TAB PO PRN (14:15)
--- NOTE | 2025-02-09 14:39 | DVHPN2 ---
Subjective In bed resting Reviewed: H&P, Labs Changes from previous H/P or p: No Changes Eyes: No Pain, No Vision change, No Conjunctivae inflammation, No Eyelid inflammation, No Other, No Redness ENT: No Ear pain, No Ear discharge, No Nose pain, No Nose discharge, No Nose congestion, No Mouth pain, No Mouth swelling, No Throat pain, No Throat swelling, No Other Cardiovascular: No Chest Pain, No Palpitations, No Orthopnea, No Paroxysmal Noc. Dyspnea, No Edema, No Lt Headedness, No Other Respiratory: No Cough, No Dry; Shortness of breath; No SOB with excertion, No Wheezing, No Hemoptysis, No Pleuritic Pain, No Sputum, No Other Gastrointestinal: No Nausea, No Vomiting, No Abdominal Pain, No Diarrhea, No Constipation, No Melena, No Hematochezia, No Other Genitourinary: No Dysuria, No Frequency, No Incontinence, No Hematuria, No Retention, No Other Musculoskeletal: No other, No neck pain, No shoulder pain, No arm pain, No back pain, No hand pain, No leg pain, No foot pain Skin: No Rash, No Lesions, No Jaundice, No Bruising, No Other Objective Vitals Vital Signs Date Time Temp Pulse Resp B/P (MAP) Pulse Ox O2 Delivery O2 Flow Rate FiO2 02/09/25 13:00 98.6 70 20 103/55 (71) 100 98.6 02/09/25 10:00 Room Air* 0 21 Intake/Output Intake and Output 02/09/25 07:00 Intake Total 1050 ml Balance 1050 ml Intake Oral 1050 ml # Voids 10 # Bowel Movements 2 General Appearance: Alert, Oriented X3 Lungs: Clear to auscultation Cardiovascular: Regular rate, Normal S1, Normal S2 Abdomen: Normal bowel sounds Medications Current Medications Medications Dose Ordered Sig/Mihir Route Start Time Stop Time Status Last Admin Dose Admin Albuterol 2.5 mg Q4HPRN PRN NEB 01/31/25 20:45 02/09/25 07:30 2.5 MG Ipratropium [place] 0.5 mg Q4HPRN PRN NEB 01/31/25 20:45 02/09/25 07:30 0.5 MG Acetaminophen/ Hydrocodone Bitart 1 tab Q4HP PRN PO 01/31/25 20:45 02/09/25 04:27 1 TAB Docusate Sodium 100 mg BIDPRN PRN PO 01/31/25 20:45 Acetaminophen 650 mg Q6HP PRN PO 01/31/25 20:45 02/09/25 09:29 650 MG Nitroglycerin 0.4 mg Q5MINP PRN SL 01/31/25 23:00 Melatonin 5 mg HS PO 02/01/25 22:00 02/08/25 21:21 5 MG Alprazolam 0.5 mg Q8HPRN PRN PO 02/01/25 15:45 02/08/25 06:20 0.5 MG Azithromycin 500 mg DAILY@2000 PO 02/05/25 20:00 02/08/25 20:16 500 MG Ondansetron HCl 4 mg Q4HP PRN PO 02/06/25 15:15 02/09/25 00:00 4 MG Hydromorphone HCl 2 mg Q6HP PRN PO 02/07/25 15:30 02/09/25 14:01 2 MG Ciprofloxacin 500 mg Q12HR PO 02/08/25 22:00 02/09/25 09:29 500 MG Diphenhydramine HCl 50 mg Q6HP PRN PO 02/09/25 14:00 02/09/25 14:15 50 MG Metoclopramide HCl 10 mg Q6HPRN PRN PO 02/09/25 14:00 02/09/25 14:15 10 MG Laboratory Results Laboratory Tests 02/08/25 08:41 Urinalysis Test 02/08/25 06:26 Urine Color Red (Yellow) H Urine Clarity Cloudy (Clear) H Urine pH 6.0 (5.0-9.0) Urine Specific [place] 1.012 (1.001-1.035) Urine Protein 2+ (Negative) H Urine Ketones Negative (Negative) Urine Blood 3+ /uL (Negative) H Urine Nitrite Negative (Negative) Urine Bilirubin Negative (Negative) Urine Urobilinogen Normal mg/dL (Negative) Urine Leukocyte Esterase 2+ /uL (Negative) Urine RBC 3331 /hpf (0 - 4) Urine Microscopic WBC 24 /HPF (0-5) H Urine Squamous Epithelial Cells None seen /hpf (<5) Urine Bacteria Few /hpf (None Seen) H Urine Glucose Normal mg/dL (Normal) Microbiology Microbiology Date/Time Source Procedure Growth Status 02/05/25 09:20 Sputum AFB Broth Culture Pending Resulted 02/05/25 09:20 Sputum - Final Resulted 02/05/25 09:20 Sputum - Final Resulted 02/05/25 09:20 Sputum Acid Fast Bacilli Culture Pending Resulted Assessment/Plan Assessment/Plan 81-year-old female with a known history of chronic anemia, presented to the hospital with a complaining of fainting spells on and off. 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 Patient is counseled complaining of burning urination and blood in the urine 1. Recent positive QuantiFERON as an outpatient, rule out tuberculosis although clinical suspicion is low 2. Severe anemia status post 2 units of packed RBC 3. Urinary tract infection with hematuria 4. Bilateral hilar adenopathy likely reactive 5. Anxiety disorder -QuantiFERON gold test is positive BS still waiting for sputum for AFB x3 as well as MTB. Appreciated Infectious Disease recommendations., anxiolytic medications -plan of care discussed with the patient who understand verbalized understanding and agreeable to plan, patient is requesting stronger pain medication for chronic pain syndrome. -add ciprofloxacin p.o. for urinary tract infection. Plan discussed with: Patient My Orders Orders - MIRZA NOVAK MD Procedure Category Date Status Time Diphenhdramine PHA 02/09/25 In Process Capsule (Benadryl 14:00 Metoclopramide Tablet PHA 02/09/25 In Process (Reglan Tablet) 14:00 Date of Service: Feb 09, 2025 Billing Provider: MIRZA NOVAK MD Common Visit Codes: [id number] INP/OBS CARE(HIGH) MIRZA NOVAK MD Feb 09, 2025 14:39
--- NOTE | 2025-02-09 17:50 | CONS ---
Pharmacy Clinical Information: Recommend EKG to monitor QTc while patient is on azithromycin and ciprofloxacin as both of these can prolong QTc. LAUREN BATISTA PHARMACIST Feb 09, 2025 17:50
--- NOTE | 2025-02-09 21:40 | DVH ---
Procedure: US PELVIC Study Date and Requested Time: 02/09/2025 08:29 PM Study Description: US PELVIC History: Heavy menses and fibroids Comparison: CT abdomen and pelvis 02/08/2025 Technique: Multiple transabdominal and transvaginal high resolution boyle-scale images obtained of the uterus and adnexa with color Doppler for evaluation of adnexal blood flow and vascularity as indicat ed. Findings: Uterus measures 8.8 x 7.9 x 7.6 cm with multiple hypoechoic structures, largest measuring up to 4.3 x 4.5 x 4.2 cm with homogeneous echotexture. Endometrium is at the upper limit of normal measuring up to 16 mm. Cervix within normal limits. Bilateral ovaries are not visualized. No evidence of free fluid in the cul-de-sac. Impression: Suggested fibroid uterus. Endometrium is upper limit of normal measuring up to 16 mm. Recommend correlation with phase of mens trual cycle. Bilateral ovaries are not visualized.
[2025-02-10] VITALS (11 sets, daily range): BP systolic 96–114; BP diastolic 66–75; PULSE 89–115; RESP 16–20; TEMP 98–98.8; O2SAT 98–100
--- NOTE | 2025-02-10 07:34 | DVHINCON2 ---
Date of service: Feb 10, 2025 Reason for Consultation Heavy menstrual bleeding w/ Anemia Uterine Fibroids History of Present Illness HPI 44y AA female. Hx of C/S x 3, BTL, Ectopic LMP 02/05/25 Admitted w/ symptomatic anemia s/p 2 units PRBC Patient endorses long history of heavy menses. Cycles regular but last 8-10 days Uses up to 10 pads/day. 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 Last PAP > 5 yr ago, normal per patient Patient is being worked up for TB Home Meds No Active Prescriptions or Reported Meds Past Medical History Cardiac: No pertinent Hx Pulmonary: No pertinent Hx Central Nervous System: No pertinent Hx GI: No pertinent Hx Hemotology/Oncology: No pertinent Hx Hepatobiliary: No pertinent Hx Psychiatric: No pertinent Hx Musculoskeletal: No pertinent Hx Rheumotologic: No pertinent Hx Infectious Disease: No peritnent Hx ENT: No pertinent Hx Renal/: No pertinent Hx Endocrine: No pertinent Hx Dermatology: No pertinent Hx Past Surgical History: , Tubal ligation, Other (Ruptured ectopic s/p ex lap and salpingectomy) Family History: No pertinent Hx Patient Family History: Diabetes mellitus G8 MOTHER Hypertension G8 MOTHER Smoker: No Hx (Negative) Alocohol: None Drugs: None Lives with: With family Review of Systems Constitutional: Malaise, Weakness, Weight loss Ears, Nose, & Throat: No symptom reported Eyes: No symptom reported Pulmonary/Respiratory: No symptom reported Cardiovascular: No symptom reported Gastrointestinal: No symptom reported Genitourinary: No symptom reported Musculoskeletal: No symptom reported Skin: No symptom reported Psychiatric: No symptom reported Endocrine: No symptom reported Hemotologic/Lymphatic: No symptom reported H&P Exam Vital Signs Vital Signs Date Time Temp Pulse Resp B/P (MAP) Pulse Ox O2 Delivery O2 Flow Rate FiO2 02/10/25 05:15 98.7 97 18 108/66 (80) 100 98.7 02/09/25 22:41 Room Air 0.0 02/09/25 22:41 21 General Appeara: Well developed, Well nourished, Normal Appearance Head Exam: Normal inspection Neck Exam: Normal inspection Eye Exam: bilateral eye PERRL Abdominal Exam: No tenderness, No masses Rectal Exam: Deferred 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: Normal hearing, Normal speech Neuro/Mental St: Alert, Oriented Appearance: Appropriate appearance, Appropriate insight Skin Exam: Normal inspection Labs/Xrays PATIENT: RADHA GRACE SACCT: [id number] UNIT: [id number] : 1980 LOC: [facility] ROOM / BED: 0239 / A AGE / SEX: 44 / F ADM STATUS: ADM IN SERVICE 281 ORDERING PHYSICIAN: JEROME BOGGS DO PROCEDURE(s): PELUS - PELVIC REASON: Heavy menses and fibroids ORDER NUMBER(s): [id number], ACCESSION NUMBER(s): [id number] Procedure: US PELVIC Study Date and Requested Time: 02/09/2025 08:29 PM Study Description: US PELVIC History: Heavy menses and fibroids Comparison: CT abdomen and pelvis 02/08/2025 Technique: Multiple transabdominal and transvaginal high resolution boyle-scale images obtained of the uterus and adnexa with color Doppler for evaluation of adnexal blood flow and vascularity as indicated. Findings: Uterus measures 8.8 x 7.9 x 7.6 cm with multiple hypoechoic structures, largest measuring up to 4.3 x 4.5 x 4.2 cm with homogeneous echotexture. Endometrium is at the upper limit of normal measuring up to 16 mm. Cervix within normal limits. Bilateral ovaries are not visualized. No evidence of free fluid in the cul-de-sac. Impression: Suggested fibroid uterus. Endometrium is upper limit of normal measuring up to 16 mm. Recommend correlation with phase of menstrual cycle. Bilateral ovaries are not visualized. ATED BY: SOILA FALCON DO DICTATED DATE/TIME: 02/09/25 2138 Labs Test 02/08/25 08:41 02/08/25 06:26 02/08/25 04:59 02/06/25 08:08 Range/Units White Blood Count 6.8 4.4-10.8 10^3/uL Red Blood Count 4.36 4.0-5.20 10^6/uL Hemoglobin 9.4 L 12.2-16.2 g/dL Hematocrit 29.0 L 36.0-46.0 % Mean Corpuscular Volume 66.5 L 80.0-100.0 fL Mean Corpuscular Hemoglobin 21.5 L 28.0-32.0 pg Mean Corpuscular Hemoglobin Concent 32.3 32.0-36.0 g/dL Red Cell Distribution Width 24.1 H 11.8-14.3 % Platelet Count 162 140-450 10^3/uL Mean Platelet Volume 9.0 6.9-10.8 fL Neutrophils (%) (Auto) 64.2 37.0-80.0 % Lymphocytes (%) (Auto) 22.3 10.0-50.0 % Monocytes (%) (Auto) 9.8 0.0-12.0 % Eosinophils (%) (Auto) 2.8 0.0-7.0 % Basophils (%) (Auto) 0.9 0.0-2.0 % Neutrophils # (Auto) 4.4 1.6-8.6 10 ^3/uL Lymphocytes # (Auto) 1.5 0.4-5.4 10 ^3/uL Monocytes # (Auto) 0.7 0-1.3 10 ^3/uL Eosinophils # (Auto) 0.2 0-0.8 10 ^3/uL Basophils # (Auto) 0.1 0-0.2 10 ^3/uL Nucleated Red Blood Cells 0.1 % Sodium Level 142 136-145 mmol/L Potassium Level 4.6 3.5-5.1 mmol/L Chloride Level 106 98-107 mmol/L Carbon Dioxide Level 25 20-31 mmol/L Anion Gap 11 5-15 Blood Urea Nitrogen 14 9-23 mg/dL Creatinine 0.93 0.550-1.02 mg/dL Glomerular Filtration Rate Calc 78 >90 mL/min BUN/Creatinine Ratio 15.1 10.0-20.0 Serum Glucose 87 74-106 mg/dL Calcium Level 10.3 8.7-10.4 mg/dL Urine Color Red H Yellow Urine Clarity Cloudy H Clear Urine pH 6.0 5.0-9.0 Urine Specific [place] 1.012 1.001-1.035 Urine Protein 2+ H Negative Urine Ketones Negative Negative Urine Blood 3+ H Negative /uL Urine Nitrite Negative Negative Urine Bilirubin Negative Negative Urine Urobilinogen Normal Negative mg/dL Urine Leukocyte Esterase 2+ Negative /uL Urine RBC 3331 0 - 4 /hpf Urine Microscopic WBC 24 H 0-5 /HPF Urine Squamous Epithelial Cells None seen <5 /hpf Urine Bacteria Few H None Seen /hpf Urine Glucose Normal Normal mg/dL SARS-CoV-2 Antigen (Rapid) Negative NEGATIVE Miscellaneous Referred Test (Refrg) Sent to [facility] Test 02/02/25 12:48 02/01/25 21:08 02/01/25 08:40 01/31/25 18:59 Range/Units TB Test (QFT) Gold Plus Positive H Negative TB Test (QFT) Nil 0.08 . IU/mL TB Test (QFT) Mitogen 5.06 . IU/mL TB Test (QFT) Antigen 1 1.40 . IU/mL TB Test (QFT) Antigen 2 1.13 . IU/mL TB Test (QFT) Criteria Comment . Coccidioides Antibody (Comp Fix) <1:2 <1:2 HIV (1&2) Antibody Negative Negative Aspergillus flavus Antibody Negative Neg:<1:1 Aspergillus fumigatus Antibody Negative Neg:<1:1 Aspergillus niger Antibody Negative Neg:<1:1 Erythrocyte Sedimentation Rate 17 0-20 mm/hr Hemoglobin A1c 5.2 <5.7 % A1C Total Bilirubin 1.9 H 0.2-1.0 mg/dL Aspartate Amino Transferase (AST) 20 13-40 U/L Alanine Aminotransferase (ALT) 14 7-40 U/L Alkaline Phosphatase 121 H 46-116 U/L Total Protein 7.3 5.7-8.2 g/dL Albumin 4.4 3.2-4.8 g/dL Troponin I High Sensitivity 3 L </=34 ng/L Test 01/31/25 15:49 Range/Units Platelet Estimate Adequate Hypochromasia (manual) Marked Anisocytosis (manual) Slight Microcytosis Marked D-Dimer, Quantitative 0.93 H 0.0-0.49 mg/L FEU B-Type Natriuretic Peptide 97.69 0-100 pg/mL Microbiology Date/Time Source Procedure Growth Status 02/05/25 09:20 Sputum AFB Broth Culture Pending Resulted 02/05/25 09:20 Sputum - Final Resulted 02/05/25 09:20 Sputum - Final Resulted 02/05/25 09:20 Sputum Acid Fast Bacilli Culture Pending Resulted Assessment/Plan Admitting Diagnosis: AUB-L (abnormal uterine bleeding- Leiomyoma) Symptomatic anemia hx of multiple blood transfusions Plan Patient is currently hemodynamically stable, minimal menstrual bleeding Recommend IR consult for [place] (uterine A embolization) May use Tranexamic acid 650mg PO 2 tabs TID x 5 days to minimize menstrual blood loss each menses F/U outpatient in [facility] clinic for PAP, Pelvic Exam, EMBx and coordinate further mgmt Declined hysterectomy at this time. [facility] TE[employer] MANAGER will sign off Thank you for allowing me to participate in the care of this patient Plan discussed with: Patient Date of Service: Feb 10, 2025 Billing Provider: JEROME BOGGS DO Common Visit Codes: CONSULT ONLY Consultation Codes: [id number] CONSULT <60MIN JEROME BOGGS DO Feb 10, 2025 07:34
--- NOTE | 2025-02-10 17:38 | DVHPN2 ---
Subjective In bed resting Reviewed: H&P, Labs Changes from previous H/P or p: No Changes Eyes: No Pain, No Vision change, No Conjunctivae inflammation, No Eyelid inflammation, No Other, No Redness ENT: No Ear pain, No Ear discharge, No Nose pain, No Nose discharge, No Nose congestion, No Mouth pain, No Mouth swelling, No Throat pain, No Throat swelling, No Other Cardiovascular: No Chest Pain, No Palpitations, No Orthopnea, No Paroxysmal Noc. Dyspnea, No Edema, No Lt Headedness, No Other Respiratory: No Cough, No Dry; Shortness of breath; No SOB with excertion, No Wheezing, No Hemoptysis, No Pleuritic Pain, No Sputum, No Other Gastrointestinal: No Nausea, No Vomiting, No Abdominal Pain, No Diarrhea, No Constipation, No Melena, No Hematochezia, No Other Genitourinary: No Dysuria, No Frequency, No Incontinence, No Hematuria, No Retention, No Other Musculoskeletal: No other, No neck pain, No shoulder pain, No arm pain, No back pain, No hand pain, No leg pain, No foot pain Skin: No Rash, No Lesions, No Jaundice, No Bruising, No Other Objective Vitals Vital Signs Date Time Temp Pulse Resp B/P (MAP) Pulse Ox O2 Delivery O2 Flow Rate FiO2 02/10/25 16:30 98.0 110 16 114/75 (88) 100 98.0 02/10/25 10:46 Room Air 0.0 02/10/25 10:46 21 Intake/Output Intake and Output 02/10/25 07:00 Intake Total 960 ml Balance 960 ml Intake Oral 960 ml # Voids 8 # Bowel Movements 1 General Appearance: Alert, Oriented X3 Lungs: Clear to auscultation Cardiovascular: Regular rate, Normal S1, Normal S2 Abdomen: Normal bowel sounds Medications Current Medications Medications Dose Ordered Sig/Mihir Route Start Time Stop Time Status Last Admin Dose Admin Albuterol 2.5 mg Q4HPRN PRN NEB 01/31/25 20:45 02/10/25 10:46 2.5 MG Ipratropium [place] 0.5 mg Q4HPRN PRN NEB 01/31/25 20:45 02/10/25 10:46 0.5 MG Docusate Sodium 100 mg BIDPRN PRN PO 01/31/25 20:45 Acetaminophen 650 mg Q6HP PRN PO 01/31/25 20:45 02/09/25 09:29 650 MG Nitroglycerin 0.4 mg Q5MINP PRN SL 01/31/25 23:00 Melatonin 5 mg HS PO 02/01/25 22:00 02/09/25 21:38 5 MG Alprazolam 0.5 mg Q8HPRN PRN PO 02/01/25 15:45 02/08/25 06:20 0.5 MG Azithromycin 500 mg DAILY@2000 PO 02/05/25 20:00 02/09/25 20:00 500 MG Ondansetron HCl 4 mg Q4HP PRN PO 02/06/25 15:15 02/09/25 00:00 4 MG Hydromorphone HCl 2 mg Q6HP PRN PO 02/07/25 15:30 02/10/25 03:56 2 MG Ciprofloxacin 500 mg Q12HR PO 02/08/25 22:00 02/10/25 10:59 500 MG Diphenhydramine HCl 50 mg Q6HP PRN PO 02/09/25 14:00 02/10/25 03:55 50 MG Metoclopramide HCl 10 mg Q6HPRN PRN PO 02/09/25 14:00 02/10/25 17:13 10 MG Laboratory Results Laboratory Tests 02/08/25 08:41 Urinalysis Test 02/08/25 06:26 Urine Color Red (Yellow) H Urine Clarity Cloudy (Clear) H Urine pH 6.0 (5.0-9.0) Urine Specific [place] 1.012 (1.001-1.035) Urine Protein 2+ (Negative) H Urine Ketones Negative (Negative) Urine Blood 3+ /uL (Negative) H Urine Nitrite Negative (Negative) Urine Bilirubin Negative (Negative) Urine Urobilinogen Normal mg/dL (Negative) Urine Leukocyte Esterase 2+ /uL (Negative) Urine RBC 3331 /hpf (0 - 4) Urine Microscopic WBC 24 /HPF (0-5) H Urine Squamous Epithelial Cells None seen /hpf (<5) Urine Bacteria Few /hpf (None Seen) H Urine Glucose Normal mg/dL (Normal) Microbiology Microbiology Date/Time Source Procedure Growth Status 02/05/25 09:20 Sputum AFB Broth Culture Pending Resulted 02/05/25 09:20 Sputum - Final Resulted 02/05/25 09:20 Sputum - Final Resulted 02/05/25 09:20 Sputum Acid Fast Bacilli Culture Pending Resulted Assessment/Plan Assessment/Plan 81-year-old female with a known history of chronic anemia, presented to the hospital with a complaining of fainting spells on and off. 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 Patient is counseled complaining of burning urination and blood in the urine 1. Recent positive QuantiFERON as an outpatient, rule out tuberculosis although clinical suspicion is low 2. Severe anemia status post 2 units of packed RBC 3. Urinary tract infection with hematuria 4. Bilateral hilar adenopathy likely reactive 5. Anxiety disorder -QuantiFERON gold test is positive BS still waiting for sputum for AFB x3 as well as MTB. Appreciated Infectious Disease recommendations., anxiolytic medications -plan of care discussed with the patient who understand verbalized understanding and agreeable to plan, patient is requesting stronger pain medication for chronic pain syndrome. -add ciprofloxacin p.o. for urinary tract infection. Plan discussed with: Patient Date of Service: Feb 10, 2025 Billing Provider: MIRZA NOVAK MD Common Visit Codes: [id number] INP/OBS CARE(HIGH) MIRZA NOVAK MD Feb 10, 2025 17:38
--- NOTE | 2025-02-10 22:34 | DVHPN2 ---
Consult Progress Note Date Seen: Feb 10, 2025 Subjective Patient reports: No new complaints (no fevers or chills . patient is just anxious and concered on if she has TB or not ) Objective vital signs Vital Sign Date Time Temp Pulse Resp B/P (MAP) Pulse Ox O2 Delivery O2 Flow Rate FiO2 02/10/25 21:00 98.8 115 17 96/72 (80) 100 98.8 02/10/25 18:51 Room Air 0.0 02/10/25 18:51 21 Total Intake and Output 02/09/25 02/09/25 02/10/25 15:00 23:00 07:00 Intake Total 360 ml 600 ml Balance 360 ml 600 ml medications Current Medications Medications Dose Ordered Sig/Mihir Route Start Time Stop Time Status Last Admin Dose Admin Albuterol 2.5 mg Q4HPRN PRN NEB 01/31/25 20:45 02/10/25 10:46 2.5 MG Ipratropium [place] 0.5 mg Q4HPRN PRN NEB 01/31/25 20:45 02/10/25 10:46 0.5 MG Docusate Sodium 100 mg BIDPRN PRN PO 01/31/25 20:45 Acetaminophen 650 mg Q6HP PRN PO 01/31/25 20:45 02/09/25 09:29 650 MG Nitroglycerin 0.4 mg Q5MINP PRN SL 01/31/25 23:00 Melatonin 5 mg HS PO 02/01/25 22:00 02/10/25 20:50 5 MG Alprazolam 0.5 mg Q8HPRN PRN PO 02/01/25 15:45 02/08/25 06:20 0.5 MG Azithromycin 500 mg DAILY@1999 PO 02/05/25 20:00 02/10/25 20:50 500 MG Ondansetron HCl 4 mg Q4HP PRN PO 02/06/25 15:15 02/09/25 00:00 4 MG Hydromorphone HCl 2 mg Q6HP PRN PO 02/07/25 15:30 02/10/25 03:56 2 MG Ciprofloxacin 500 mg Q12HR PO 02/08/25 22:00 02/10/25 20:50 500 MG Diphenhydramine HCl 50 mg Q6HP PRN PO 02/09/25 14:00 02/10/25 03:55 50 MG Metoclopramide HCl 10 mg Q6HPRN PRN PO 02/09/25 14:00 02/10/25 17:13 10 MG laboratory and microbiology Laboratory Tests 02/08/25 08:41 Test 02/08/25 08:41 Range/Units Serum Glucose 87 74-106 mg/dL Problem List/Assessment/Plan Problems(with codes): (1) Fatigue (2) Severe anemia (3) Generalized weakness (4) Other fatigue (5) Elevated d-dimer (6) Bulky or enlarged uterus (7) Menorrhagia with irregular cycle Problem List/Assessment/Plan Patient is a 44 year old female with a past medical history of anemia , maharaja , fainting spells since August . presents with SOB and sweating, having about 10 lbs of weight loss , cough , and sputum since September . Was told by [place] that she was in direct contact with another patient that was positive for Tb and then developed a positive quantifier . Patient states she was given the BCG vaccine , however she was born and raised in [place]. Has no travel history , Labs are normal . Has a notable submental lymph node that is on her left side and is enlarged. Physical exams shows crackles in lungs bilaterally . chest xray shows higher lymphadenopathy . 02/04: continues to do well today , did experience night sweat and abnormal uterine bleeding episodes overnight. Is notable to be mildly tachycardic and has some tenderness at sub mental lymph node . quantifier gold is positive so will need to complete the rule out as that adds to the suspicion , HIV , aspergillus , coxitides antibodies serologies are still pending . Covid -19 is negative 02/07: menstrual bleeding overnight and is feeling lightheaded and dizzy this morning. No mild abdominal tenderness . Being evaluated by gynecology. Renal ultrasound shows a mild hydronephrosis of the right kidney . Abdomen and pelvis CT shows no hydronephrosis of either kidney and an enlarged uterus that is thought to be a form from multiple fibroids 02/08: Patient was seen by urology for hydronephrosis , licea catheter was placed. Gynecology has seen patient and recommends patient does a IR guided uterine artery embolization and use a TXA tablets to minimize menstrual loss bleeding . Patient is to undergo procedure. Sub mandibular ultrasound was done and showed an area of enlargement corresponding to a lymph node measuring at 1.1 x 0.8 x 0.7 cm 02/09: lymph nodes are tender but not worse than yesterday 02/10: Spoke with department of public health . patient can get an accelerated panel for MTV PCRs performed if we send it to their department Plan : - send MTV PCR samples to department of public health to get accelerated results returned - can monitor off all antibiotics - AFB sputum are negative x3 , awaiting MTB PCR to come back negative - given the risk factors and known active case of TB at [facility] would do a full TB rule out for this patient - continue azithromycin - can treat empirically for pneumonia for now - would include non infectious causes of hyler lymphadenopathy in the differential including lymphoma and sarcoidosis Plan discussed with: Other Dietary Evaluation Review Recommendations by RD: Dietary education by RD Comments: 1) Encourage optimal PO intake 2) Refer to outpatient RD for weight management 3) Follow-up with cardiology, hematology, and infectious disease 4) Continue to monitor I&O, labs, and skin integrity Expected Outcomes/Goals: 1) appetite and labs to improve 2) f/u in 3-5 days CC Plasma Assessment Blood Product Administration S: [id number] JULIET CRISTINA MD Feb 10, 2025 22:34
--- NOTE | 2025-02-10 22:34 | DVHPN2 ---
Consult Progress Note Date Seen: Feb 09, 2025 Subjective Patient reports: Feels better Objective vital signs Vital Sign Date Time Temp Pulse Resp B/P (MAP) Pulse Ox O2 Delivery O2 Flow Rate FiO2 02/10/25 21:00 98.8 115 17 96/72 (80) 100 98.8 02/10/25 18:51 Room Air 0.0 02/10/25 18:51 21 Total Intake and Output 02/09/25 02/09/25 02/10/25 15:00 23:00 07:00 Intake Total 360 ml 600 ml Balance 360 ml 600 ml medications Current Medications Medications Dose Ordered Sig/Mihir Route Start Time Stop Time Status Last Admin Dose Admin Albuterol 2.5 mg Q4HPRN PRN NEB 01/31/25 20:45 02/10/25 10:46 2.5 MG Ipratropium [place] 0.5 mg Q4HPRN PRN NEB 01/31/25 20:45 02/10/25 10:46 0.5 MG Docusate Sodium 100 mg BIDPRN PRN PO 01/31/25 20:45 Acetaminophen 650 mg Q6HP PRN PO 01/31/25 20:45 02/09/25 09:29 650 MG Nitroglycerin 0.4 mg Q5MINP PRN SL 01/31/25 23:00 Melatonin 5 mg HS PO 02/01/25 22:00 02/10/25 20:50 5 MG Alprazolam 0.5 mg Q8HPRN PRN PO 02/01/25 15:45 02/08/25 06:20 0.5 MG Azithromycin 500 mg DAILY@2000 PO 02/05/25 20:00 02/10/25 20:50 500 MG Ondansetron HCl 4 mg Q4HP PRN PO 02/06/25 15:15 02/09/25 00:00 4 MG Hydromorphone HCl 2 mg Q6HP PRN PO 02/07/25 15:30 02/10/25 03:56 2 MG Ciprofloxacin 500 mg Q12HR PO 02/08/25 22:00 02/10/25 20:50 500 MG Diphenhydramine HCl 50 mg Q6HP PRN PO 02/09/25 14:00 02/10/25 03:55 50 MG Metoclopramide HCl 10 mg Q6HPRN PRN PO 02/09/25 14:00 02/10/25 17:13 10 MG laboratory and microbiology Laboratory Tests 02/08/25 08:41 Test 02/08/25 08:41 Range/Units Serum Glucose 87 74-106 mg/dL Problem List/Assessment/Plan Problems(with codes): (1) Fatigue (2) Severe anemia (3) Generalized weakness (4) Other fatigue (5) Elevated d-dimer (6) Bulky or enlarged uterus (7) Menorrhagia with irregular cycle Problem List/Assessment/Plan Patient is a 44 year old female with a past medical history of anemia , maharaja , fainting spells since August . presents with SOB and sweating, having about 10 lbs of weight loss , cough , and sputum since September . Was told by [place] that she was in direct contact with another patient that was positive for Tb and then developed a positive quantifier . Patient states she was given the BCG vaccine , however she was born and raised in [place]. Has no travel history , Labs are normal . Has a notable submental lymph node that is on her left side and is enlarged. Physical exams shows crackles in lungs bilaterally . chest xray shows higher lymphadenopathy . 02/04: continues to do well today , did experience night sweat and abnormal uterine bleeding episodes overnight. Is notable to be mildly tachycardic and has some tenderness at sub mental lymph node . quantifier gold is positive so will need to complete the rule out as that adds to the suspicion , HIV , aspergillus , coxitides antibodies serologies are still pending . Covid -19 is negative 02/07: menstrual bleeding overnight and is feeling lightheaded and dizzy this morning. No mild abdominal tenderness . Being evaluated by gynecology. Renal ultrasound shows a mild hydronephrosis of the right kidney . Abdomen and pelvis CT shows no hydronephrosis of either kidney and an enlarged uterus that is thought to be a form from multiple fibroids 02/08: Patient was seen by urology for hydronephrosis , licea catheter was placed. Gynecology has seen patient and recommends patient does a IR guided uterine artery embolization and use a TXA tablets to minimize menstrual loss bleeding . Patient is to undergo procedure. Sub mandibular ultrasound was done and showed an area of enlargement corresponding to a lymph node measuring at 1.1 x 0.8 x 0.7 cm 02/09: lymph nodes are tender but not worse than yesterday Plan : - AFB sputum are negative x3 , awaiting MTB PCR to come back negative - given the risk factors and known active case of TB at [facility] would do a full TB rule out for this patient - continue azithromycin - can treat empirically for pneumonia for now - would include non infectious causes of hyler lymphadenopathy in the differential including lymphoma and sarcoidosis a reviewed history physical assessment and plan with Dr. Dia . In agreement with the above with the exception to changes noted in the addendum Plan discussed with: Other Dietary Evaluation Review Recommendations by RD: Dietary education by RD Comments: 1) Encourage optimal PO intake 2) Refer to outpatient RD for weight management 3) Follow-up with cardiology, hematology, and infectious disease 4) Continue to monitor I&O, labs, and skin integrity Expected Outcomes/Goals: 1) appetite and labs to improve 2) f/u in 3-5 days CC Plasma Assessment Blood Product Administration S: [id number] JULIET CRISTINA MD Feb 10, 2025 22:34
[2025-02-11] VITALS (10 sets, daily range): BP systolic 90–106; BP diastolic 63–79; PULSE 17–107; RESP 16–19; TEMP 97.3–98.7; O2SAT 96–100
[2025-02-11 10:25] LABS: INR 1.03 (0.9-1.15); Partial Thromboplastin Time 27.7 SEC (24.5-34.5); Prothrombin Time 10.9 sec (9.3-11.8)
[2025-02-11] MEDS ORDERED: KETOROLAC TROMETH 30 MG/ML 1ML VIAL IV ONE (13:00)
[2025-02-11] MEDS: GELATIN 1 SPONGE SIZE 50 TOP ONE (13:16)
[2025-02-11] MEDS: KETOROLAC TROMETH 30 MG/ML 1ML VIAL IV ONE (14:04)
[2025-02-11] MEDS ORDERED: ONDANSETRON HCL 4 MG/2 ML VIAL IV PRN (16:15)
--- NOTE | 2025-02-11 16:15 | DVHPN2 ---
Subjective In bed resting Reviewed: H&P, Labs Changes from previous H/P or p: No Changes Eyes: No Pain, No Vision change, No Conjunctivae inflammation, No Eyelid inflammation, No Other, No Redness ENT: No Ear pain, No Ear discharge, No Nose pain, No Nose discharge, No Nose congestion, No Mouth pain, No Mouth swelling, No Throat pain, No Throat swelling, No Other Cardiovascular: No Chest Pain, No Palpitations, No Orthopnea, No Paroxysmal Noc. Dyspnea, No Edema, No Lt Headedness, No Other Respiratory: No Cough, No Dry; Shortness of breath; No SOB with excertion, No Wheezing, No Hemoptysis, No Pleuritic Pain, No Sputum, No Other Gastrointestinal: No Nausea, No Vomiting, No Abdominal Pain, No Diarrhea, No Constipation, No Melena, No Hematochezia, No Other Genitourinary: No Dysuria, No Frequency, No Incontinence, No Hematuria, No Retention, No Other Musculoskeletal: No other, No neck pain, No shoulder pain, No arm pain, No back pain, No hand pain, No leg pain, No foot pain Skin: No Rash, No Lesions, No Jaundice, No Bruising, No Other Objective Vitals Vital Signs Date Time Temp Pulse Resp B/P (MAP) Pulse Ox O2 Delivery O2 Flow Rate FiO2 02/11/25 13:00 98.0 107 16 106/79 (88) 97 98.0 02/11/25 10:00 Room Air 0.0 02/11/25 10:00 21 Intake/Output Intake and Output 02/11/25 07:00 Intake Total 2500 ml Balance 2500 ml Intake Oral 2500 ml # Voids 10 General Appearance: Alert, Oriented X3 Lungs: Clear to auscultation Cardiovascular: Regular rate, Normal S1, Normal S2 Abdomen: Normal bowel sounds Medications Current Medications Medications Dose Ordered Sig/Mihir Route Start Time Stop Time Status Last Admin Dose Admin Albuterol 2.5 mg Q4HPRN PRN NEB 01/31/25 20:45 02/10/25 10:46 2.5 MG Ipratropium [place] 0.5 mg Q4HPRN PRN NEB 01/31/25 20:45 02/10/25 10:46 0.5 MG Docusate Sodium 100 mg BIDPRN PRN PO 01/31/25 20:45 Acetaminophen 650 mg Q6HP PRN PO 01/31/25 20:45 02/11/25 08:10 650 MG Nitroglycerin 0.4 mg Q5MINP PRN SL 01/31/25 23:00 Melatonin 5 mg HS PO 02/01/25 22:00 02/10/25 20:50 5 MG Alprazolam 0.5 mg Q8HPRN PRN PO 02/01/25 15:45 02/11/25 08:14 0.5 MG Azithromycin 500 mg DAILY@2000 PO 02/05/25 20:00 02/10/25 20:50 500 MG Ondansetron HCl 4 mg Q4HP PRN PO 02/06/25 15:15 02/09/25 00:00 4 MG Hydromorphone HCl 2 mg Q6HP PRN PO 02/07/25 15:30 02/11/25 01:56 2 MG Ciprofloxacin 500 mg Q12HR PO 02/08/25 22:00 02/10/25 20:50 500 MG Diphenhydramine HCl 50 mg Q6HP PRN PO 02/09/25 14:00 02/10/25 03:55 50 MG Metoclopramide HCl 10 mg Q6HPRN PRN PO 02/09/25 14:00 02/11/25 04:47 10 MG Laboratory Results Laboratory Tests 02/08/25 08:41 Coagulation Test 02/11/25 09:36 Prothrombin Time 10.9 sec (9.3-11.8) Prothrombin Time INR 1.03 (0.9-1.15) Activated Partial Thromboplast Time 27.7 SEC (24.5-34.5) Urinalysis Test 02/08/25 06:26 Urine Color Red (Yellow) H Urine Clarity Cloudy (Clear) H Urine pH 6.0 (5.0-9.0) Urine Specific [place] 1.012 (1.001-1.035) Urine Protein 2+ (Negative) H Urine Ketones Negative (Negative) Urine Blood 3+ /uL (Negative) H Urine Nitrite Negative (Negative) Urine Bilirubin Negative (Negative) Urine Urobilinogen Normal mg/dL (Negative) Urine Leukocyte Esterase 2+ /uL (Negative) Urine RBC 3331 /hpf (0 - 4) Urine Microscopic WBC 24 /HPF (0-5) H Urine Squamous Epithelial Cells None seen /hpf (<5) Urine Bacteria Few /hpf (None Seen) H Urine Glucose Normal mg/dL (Normal) Microbiology Microbiology Date/Time Source Procedure Growth Status 02/05/25 09:20 Sputum AFB Broth Culture Pending Resulted 02/05/25 09:20 Sputum - Final Resulted 02/05/25 09:20 Sputum - Final Resulted 02/05/25 09:20 Sputum Acid Fast Bacilli Culture Pending Resulted Assessment/Plan Assessment/Plan 81-year-old female with a known history of chronic anemia, presented to the hospital with a complaining of fainting spells on and off. 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 Patient is counseled complaining of burning urination and blood in the urine 1. Recent positive QuantiFERON as an outpatient, rule out tuberculosis although clinical suspicion is low 2. Severe anemia status post 2 units of packed RBC 3. Urinary tract infection with hematuria 4. Bilateral hilar adenopathy likely reactive 5. Anxiety disorder -QuantiFERON gold test is positive BS still waiting for sputum for AFB x3 as well as MTB. Appreciated Infectious Disease recommendations., anxiolytic medications -plan of care discussed with the patient who understand verbalized understanding and agreeable to plan, patient is requesting stronger pain medication for chronic pain syndrome. -add ciprofloxacin p.o. for urinary tract infection. Plan discussed with: Patient Date of Service: Feb 11, 2025 Billing Provider: MIRZA NOVAK MD Common Visit Codes: [id number] INP/OBS CARE(HIGH) MIRZA NOVAK MD Feb 11, 2025 16:15
[2025-02-11] MEDS: SODIUM CHLORIDE 0.9% 1,000 ML IV SCH (17:24)
--- NOTE | 2025-02-11 21:54 | DVHPN2 ---
Consult Progress Note Date Seen: Feb 11, 2025 Subjective Patient reports: Feels better (up and getting out of bed for smpke breaks , able to ambulate , no signs of hypoxia ) Objective vital signs Vital Sign Date Time Temp Pulse Resp B/P (MAP) Pulse Ox O2 Delivery O2 Flow Rate FiO2 02/11/25 16:33 98.1 98 16 90/63 (72) 97 98.1 02/11/25 10:00 Room Air 0.0 02/11/25 10:00 21 Total Intake and Output 02/10/25 02/10/25 02/11/25 15:00 23:00 07:00 Intake Total 2100 ml 400 ml Balance 2100 ml 400 ml medications Current Medications Medications Dose Ordered Sig/Mihir Route Start Time Stop Time Status Last Admin Dose Admin Albuterol 2.5 mg Q4HPRN PRN NEB 01/31/25 20:45 02/10/25 10:46 2.5 MG Ipratropium [place] 0.5 mg Q4HPRN PRN NEB 01/31/25 20:45 02/10/25 10:46 0.5 MG Docusate Sodium 100 mg BIDPRN PRN PO 01/31/25 20:45 Acetaminophen 650 mg Q6HP PRN PO 01/31/25 20:45 02/11/25 17:01 650 MG Nitroglycerin 0.4 mg Q5MINP PRN SL 01/31/25 23:00 Melatonin 5 mg HS PO 02/01/25 22:00 02/11/25 21:18 5 MG Alprazolam 0.5 mg Q8HPRN PRN PO 02/01/25 15:45 02/11/25 08:14 0.5 MG Azithromycin 500 mg DAILY@1999 PO 02/05/25 20:00 02/11/25 21:17 500 MG Hydromorphone HCl 2 mg Q6HP PRN PO 02/07/25 15:30 02/11/25 01:56 2 MG Ciprofloxacin 500 mg Q12HR PO 02/08/25 22:00 02/11/25 21:18 500 MG Diphenhydramine HCl 50 mg Q6HP PRN PO 02/09/25 14:00 02/10/25 03:55 50 MG Metoclopramide HCl 10 mg Q6HPRN PRN PO 02/09/25 14:00 02/11/25 18:33 10 MG Ondansetron HCl 4 mg Q4HPRN PRN IV 02/11/25 16:15 Ketorolac Tromethamine 30 mg Q6HPRN PRN IV 02/11/25 16:30 02/16/25 16:29 Sodium Chloride 1,000 ml @ 150 mls/hr Q6H40M IV 02/11/25 17:00 02/11/25 17:24 150 MLS/HR laboratory and microbiology Laboratory Tests 02/08/25 08:41 Test 02/08/25 08:41 Range/Units Serum Glucose 87 74-106 mg/dL Problem List/Assessment/Plan Problems(with codes): (1) Fatigue (2) Severe anemia (3) Generalized weakness (4) Other fatigue (5) Elevated d-dimer (6) Bulky or enlarged uterus (7) Menorrhagia with irregular cycle Problem List/Assessment/Plan Patient is a 44 year old female with a past medical history of anemia , maharaja , fainting spells since August . presents with SOB and sweating, having about 10 lbs of weight loss , cough , and sputum since September . Was told by [place] that she was in direct contact with another patient that was positive for Tb and then developed a positive quantifier . Patient states she was given the BCG vaccine , however she was born and raised in [place]. Has no travel history , Labs are normal . Has a notable submental lymph node that is on her left side and is enlarged. Physical exams shows crackles in lungs bilaterally . chest xray shows higher lymphadenopathy . 02/04: continues to do well today , did experience night sweat and abnormal uterine bleeding episodes overnight. Is notable to be mildly tachycardic and has some tenderness at sub mental lymph node . quantifier gold is positive so will need to complete the rule out as that adds to the suspicion , HIV , aspergillus , coxitides antibodies serologies are still pending . Covid -19 is negative 02/07: menstrual bleeding overnight and is feeling lightheaded and dizzy this morning. No mild abdominal tenderness . Being evaluated by gynecology. Renal ultrasound shows a mild hydronephrosis of the right kidney . Abdomen and pelvis CT shows no hydronephrosis of either kidney and an enlarged uterus that is thought to be a form from multiple fibroids 02/08: Patient was seen by urology for hydronephrosis , licea catheter was placed. Gynecology has seen patient and recommends patient does a IR guided uterine artery embolization and use a TXA tablets to minimize menstrual loss bleeding . Patient is to undergo procedure. Sub mandibular ultrasound was done and showed an area of enlargement corresponding to a lymph node measuring at 1.1 x 0.8 x 0.7 cm 02/09: lymph nodes are tender but not worse than yesterday 02/10: Spoke with department of public health . patient can get an accelerated panel for MTV PCRs performed if we send it to their department 02/11: patient underwent IR guided embolization and has since not had any bleeding and no abdominal pain from procedure Plan : - send MTV PCR samples to department of public health to get accelerated results returned - can monitor off all antibiotics - AFB sputum are negative x3 , awaiting MTB PCR to come back negative - given the risk factors and known active case of TB at [facility] would do a full TB rule out for this patient - continue azithromycin - can treat empirically for pneumonia for now - would include non infectious causes of hyler lymphadenopathy in the differential including lymphoma and sarcoidosis Plan discussed with: Other Dietary Evaluation Review Recommendations by RD: Dietary education by RD Comments: 1) Encourage optimal PO intake 2) Refer to outpatient RD for weight management 3) Follow-up with cardiology, hematology, and infectious disease 4) Continue to monitor I&O, labs, and skin integrity Expected Outcomes/Goals: 1) appetite and labs to improve 2) f/u in 3-5 days CC Plasma Assessment Blood Product Administration S: [id number] JULIET CRISTINA MD Feb 11, 2025 21:54
[2025-02-11] MEDS: KETOROLAC TROMETH 30 MG/ML 1ML VIAL IV PRN (22:20)
[2025-02-12] VITALS (14 sets, daily range): BP systolic 95–138; BP diastolic 60–87; PULSE 79–101; RESP 17–19; TEMP 97.6–98.3; O2SAT 96–100
[2025-02-12] MEDS: IODIXANOL 320MG/ML 100ML BTL IV ONE ×2 (10:02→11:46)
[2025-02-12] MEDS: fentaNYL CITRATE 100 MCG/2 ML VL ONE ×2 (10:44→11:55)
[2025-02-12] MEDS: MIDAZOLAM HCL 2MG/2ML 2ml VIAL (1mg/ml) ONE ×2 (10:45→11:06)
[2025-02-12] MEDS: LIDOCAINE 2%HCL (LOCAL ANESTH.) INJ 20ML MDV ONE (10:45)
[2025-02-12] MEDS: KETOROLAC TROMETH 30 MG/ML 1ML VIAL IV STA (11:52)
[2025-02-12] MEDS: ONDANSETRON HCL 4 MG/2 ML VIAL ONE (11:55)
[2025-02-12] MEDS ORDERED: ONDANSETRON HCL 4 MG/2 ML VIAL IV PRN (13:00)
[2025-02-12] MEDS ORDERED: HYDROmorphone HCL 2 MG/ML VL/or syr IV PRN ×2 (13:00→17:00)
--- NOTE | 2025-02-12 15:41 | MEDREC ---
[facility] ASP Intervention Section I [facility] ASP Intervention: Duplication of therapy (AZITHROMYCIN AND CIPROFLOXACIN COVER BOTH FOR ATYPICAL MICROORGANISMS - BOTH CAN PROLONG THE QT INTERVAL - PLEASE CONSIDER D/C AZITHROMYCIN ) CYNDEE MATA PHARMACIST Feb 12, 2025 15:41
[2025-02-12] MEDS ORDERED: PROMETHAZINE HCL 25 MG RECT SUPP PR PRN (17:00)
--- NOTE | 2025-02-12 17:14 | DVHPN2 ---
Subjective In bed resting Reviewed: H&P, Labs Changes from previous H/P or p: No Changes Eyes: No Pain, No Vision change, No Conjunctivae inflammation, No Eyelid inflammation, No Other, No Redness ENT: No Ear pain, No Ear discharge, No Nose pain, No Nose discharge, No Nose congestion, No Mouth pain, No Mouth swelling, No Throat pain, No Throat swelling, No Other Cardiovascular: No Chest Pain, No Palpitations, No Orthopnea, No Paroxysmal Noc. Dyspnea, No Edema, No Lt Headedness, No Other Respiratory: No Cough, No Dry; Shortness of breath; No SOB with excertion, No Wheezing, No Hemoptysis, No Pleuritic Pain, No Sputum, No Other Gastrointestinal: No Nausea, No Vomiting, No Abdominal Pain, No Diarrhea, No Constipation, No Melena, No Hematochezia, No Other Genitourinary: No Dysuria, No Frequency, No Incontinence, No Hematuria, No Retention, No Other Musculoskeletal: No other, No neck pain, No shoulder pain, No arm pain, No back pain, No hand pain, No leg pain, No foot pain Skin: No Rash, No Lesions, No Jaundice, No Bruising, No Other Objective Vitals Vital Signs Date Time Temp Pulse Resp B/P (MAP) Pulse Ox O2 Delivery O2 Flow Rate FiO2 02/12/25 17:00 97.7 101 17 111/81 (91) 100 97.7 02/12/25 10:00 Room Air 0.0 02/12/25 10:00 21 Intake/Output Intake and Output 02/12/25 07:00 Intake Total 3175 ml Balance 3175 ml Intake Oral 2175 ml IV Total 1000 ml # Voids 4 # Bowel Movements 1 General Appearance: Alert, Oriented X3 Lungs: Clear to auscultation Cardiovascular: Regular rate, Normal S1, Normal S2 Abdomen: Normal bowel sounds Medications Current Medications Medications Dose Ordered Sig/Mihir Route Start Time Stop Time Status Last Admin Dose Admin Albuterol 2.5 mg Q4HPRN PRN NEB 01/31/25 20:45 02/10/25 10:46 2.5 MG Ipratropium [place] 0.5 mg Q4HPRN PRN NEB 01/31/25 20:45 02/10/25 10:46 0.5 MG Docusate Sodium 100 mg BIDPRN PRN PO 01/31/25 20:45 Acetaminophen 650 mg Q6HP PRN PO 01/31/25 20:45 02/11/25 17:01 650 MG Nitroglycerin 0.4 mg Q5MINP PRN SL 01/31/25 23:00 Melatonin 5 mg HS PO 02/01/25 22:00 02/11/25 21:18 5 MG Alprazolam 0.5 mg Q8HPRN PRN PO 02/01/25 15:45 02/11/25 08:14 0.5 MG Hydromorphone HCl 2 mg Q6HP PRN PO 02/07/25 15:30 Hold 02/11/25 01:56 2 MG Ciprofloxacin 500 mg Q12HR PO 02/08/25 22:00 02/11/25 21:18 500 MG Diphenhydramine HCl 50 mg Q6HP PRN PO 02/09/25 14:00 02/10/25 03:55 50 MG Metoclopramide HCl 10 mg Q6HPRN PRN PO 02/09/25 14:00 02/11/25 18:33 10 MG Ketorolac Tromethamine 30 mg Q6HPRN PRN IV 02/11/25 16:30 02/16/25 16:29 02/11/25 22:20 30 MG Sodium Chloride 1,000 ml @ 150 mls/hr Q6H40M IV 02/11/25 17:00 02/12/25 06:20 150 MLS/HR Ondansetron HCl 4 mg Q4HPRN PRN IV 02/12/25 13:00 Hold Promethazine HCl 25 mg Q4HP PRN [place] 02/12/25 17:00 Hold Hydromorphone HCl 1 mg Q1HR PRN IV 02/12/25 14:45 Laboratory Results Laboratory Tests 02/08/25 08:41 Urinalysis Test 02/08/25 06:26 Urine Color Red (Yellow) H Urine Clarity Cloudy (Clear) H Urine pH 6.0 (5.0-9.0) Urine Specific [place] 1.012 (1.001-1.035) Urine Protein 2+ (Negative) H Urine Ketones Negative (Negative) Urine Blood 3+ /uL (Negative) H Urine Nitrite Negative (Negative) Urine Bilirubin Negative (Negative) Urine Urobilinogen Normal mg/dL (Negative) Urine Leukocyte Esterase 2+ /uL (Negative) Urine RBC 3331 /hpf (0 - 4) Urine Microscopic WBC 24 /HPF (0-5) H Urine Squamous Epithelial Cells None seen /hpf (<5) Urine Bacteria Few /hpf (None Seen) H Urine Glucose Normal mg/dL (Normal) Microbiology Microbiology Date/Time Source Procedure Growth Status 02/05/25 09:20 Sputum AFB Broth Culture Pending Resulted 02/05/25 09:20 Sputum - Final Resulted 02/05/25 09:20 Sputum - Final Resulted 02/05/25 09:20 Sputum Acid Fast Bacilli Culture Pending Resulted Assessment/Plan Assessment/Plan 81-year-old female with a known history of chronic anemia, presented to the hospital with a complaining of fainting spells on and off. 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 Patient is counseled complaining of burning urination and blood in the urine 1. Recent positive QuantiFERON as an outpatient, rule out tuberculosis although clinical suspicion is low 2. Severe anemia status post 2 units of packed RBC 3. Urinary tract infection with hematuria 4. Bilateral hilar adenopathy likely reactive 5. Anxiety disorder -QuantiFERON gold test is positive BS still waiting for sputum for AFB x3 as well as MTB. Appreciated Infectious Disease recommendations., anxiolytic medications -plan of care discussed with the patient who understand verbalized understanding and agreeable to plan, patient is requesting stronger pain medication for chronic pain syndrome. Pending sputum test results Plan discussed with: Patient My Orders Orders - MIRZA NOVAK MD Procedure Category Date Status Time Arter/Venous XY 02/12/25 Taken Embolization 13:59 Hydromorphone PHA 02/12/25 In Process Injection (Dilaudid 14:45 Date of Service: Feb 12, 2025 Billing Provider: MIRZA NOVAK MD Common Visit Codes: [id number] INP/OBS CARE(HIGH) MIRZA NOVAK MD Feb 12, 2025 17:14
--- NOTE | 2025-02-12 20:01 | DVH ---
XY ARTER/VENOUS EMBOLIZATION, HISTORY: HISTORY: UTERINE EMBOLIZATION for symptomatic uterine fibroids with abnormal uterine bleedin g requiring 2 units of pRBC. PROCEDURE: Informed consent as previously obtained . The patient was placed supine on the interventio nal table. The right groin was prepped with chlorhexidine which was allowed to dry and draped in the usual sterile fashion. Time out was performed. The skin and the soft tissues were infiltrated with Xy locaine. Using micropuncture technique and real-time ultrasound guidance, the right common femoral ar haja was accessed and a 6 [place] vascular sheath placed; an image documenting patency was recorded to PACS. Next over a guidewire a C2 catheter was positioned into the left internal iliac artery. And an giogram was performed of the left terminal iliac artery in multiple projections. And using a micro ca theter and micro wire the left uterine artery was selected. Angiogram was then performed of the left uterine artery. Then, the embolic material was prepared. 300-500 micon embosphere. Half a bottle is d elivered into the left uterine artery to sluggish antegrade flow. The micro catheter was removed. The rim catheter was then positioned into the right internal iliac artery. Angiogram was then performed of the right internal iliac artery and multiple projections. Then using the microwire and micro gely ter the right uterine artery was selected and angiogram was performed. The other half bottle of embol ic material was delivered to the right uterine artery to sluggish flow. Catheter and sheath were then removed and hemostasis achieved with Angioseal device deployment/TR band application. No immediate c omplication was identified. Air Kerma 379 mGy FLUOROSCOPY TIME: 22 minutes. CONTRAST USED: 70 mL . SEDATION: Dr. Hemal Lam was personally responsible for the administration of moderate sedation during the procedure performed, including the use of an independent trained observer who had no other duties during the procedure. The drugs utilized were IV fentanyl and versed (see nursing log for details). The total time of supervision by the attending physician was approximately 90 minutes. FINDINGS: Prominent caliber bilateral uterine arteries supplying enlarged uterus were embolized to v eduardo sluggish antegrade flow. IMPRESSION: Bilateral uterine artery embolization for symptomatic uterine fibroids using EmboSphere particles. Pr ominent and tortuous bilateral uterine arteries. PLAN: Pain control with IV dilaudid 0.5 mg. Toradol 30 mg was given IV. Zofran IV for nausea. Ok to laureano licea in 5 hours as tolerated.
[2025-02-12] MEDS: HYDROmorphone HCL 2 MG/ML VL/or syr IV PRN (23:31)
[2025-02-13] VITALS (7 sets, daily range): BP systolic 99–108; BP diastolic 61–73; PULSE 82–91; RESP 12–18; TEMP 98–99.2; O2SAT 98–100
--- NOTE | 2025-02-13 10:23 | DVHPN2 ---
Consult Progress Note Date Seen: Feb 12, 2025 Subjective Patient reports: Feels better (no complaints , no diarrhea , no abdominal tenderness and no blood in urine ) Objective vital signs Vital Sign Date Time Temp Pulse Resp B/P (MAP) Pulse Ox O2 Delivery O2 Flow Rate FiO2 02/13/25 09:30 99.2 91 12 100/69 (79) 100 99.2 02/12/25 21:30 0.0 02/12/25 20:00 Room Air* 21 Total Intake and Output 02/12/25 02/12/25 02/13/25 14:59 22:59 06:59 Intake Total 750 ml 600 ml Output Total 550 ml Balance 750 ml 600 ml -550 ml medications Current Medications Medications Dose Ordered Sig/Mihir Route Start Time Stop Time Status Last Admin Dose Admin Albuterol 2.5 mg Q4HPRN PRN NEB 01/31/25 20:45 02/10/25 10:46 2.5 MG Ipratropium [place] 0.5 mg Q4HPRN PRN NEB 01/31/25 20:45 02/10/25 10:46 0.5 MG Docusate Sodium 100 mg BIDPRN PRN PO 01/31/25 20:45 Acetaminophen 650 mg Q6HP PRN PO 01/31/25 20:45 02/11/25 17:01 650 MG Nitroglycerin 0.4 mg Q5MINP PRN SL 01/31/25 23:00 Melatonin 5 mg HS PO 02/01/25 22:00 02/12/25 22:32 5 MG Alprazolam 0.5 mg Q8HPRN PRN PO 02/01/25 15:45 02/11/25 08:14 0.5 MG Hydromorphone HCl 2 mg Q6HP PRN PO 02/07/25 15:30 Hold 02/11/25 01:56 2 MG Ciprofloxacin 500 mg Q12HR PO 02/08/25 22:00 02/12/25 22:32 500 MG Diphenhydramine HCl 50 mg Q6HP PRN PO 02/09/25 14:00 02/13/25 01:49 50 MG Metoclopramide HCl 10 mg Q6HPRN PRN PO 02/09/25 14:00 02/12/25 22:32 10 MG Ketorolac Tromethamine 30 mg Q6HPRN PRN IV 02/11/25 16:30 02/16/25 16:29 02/11/25 22:20 30 MG Sodium Chloride 1,000 ml @ 150 mls/hr Q6H40M IV 02/11/25 17:00 02/13/25 08:09 150 MLS/HR Ondansetron HCl 4 mg Q4HPRN PRN IV 02/12/25 13:00 Hold Promethazine HCl 25 mg Q4HP PRN [place] 02/12/25 17:00 Hold Hydromorphone HCl 1 mg Q1HR PRN IV 02/12/25 14:45 02/12/25 23:31 1 MG laboratory and microbiology Laboratory Tests 02/08/25 08:41 Test 02/08/25 08:41 Range/Units Serum Glucose 87 74-106 mg/dL Problem List/Assessment/Plan Problems(with codes): (1) Fatigue (2) Severe anemia (3) Generalized weakness (4) Other fatigue (5) Elevated d-dimer (6) Bulky or enlarged uterus (7) Menorrhagia with irregular cycle Problem List/Assessment/Plan Patient is a 44 year old female with a past medical history of anemia , maharaja , fainting spells since August . presents with SOB and sweating, having about 10 lbs of weight loss , cough , and sputum since September . Was told by [place] that she was in direct contact with another patient that was positive for Tb and then developed a positive quantifier . Patient states she was given the BCG vaccine , however she was born and raised in [place]. Has no travel history , Labs are normal . Has a notable submental lymph node that is on her left side and is enlarged. Physical exams shows crackles in lungs bilaterally . chest xray shows higher lymphadenopathy . 02/04: continues to do well today , did experience night sweat and abnormal uterine bleeding episodes overnight. Is notable to be mildly tachycardic and has some tenderness at sub mental lymph node . quantifier gold is positive so will need to complete the rule out as that adds to the suspicion , HIV , aspergillus , coxitides antibodies serologies are still pending . Covid -19 is negative 02/07: menstrual bleeding overnight and is feeling lightheaded and dizzy this morning. No mild abdominal tenderness . Being evaluated by gynecology. Renal ultrasound shows a mild hydronephrosis of the right kidney . Abdomen and pelvis CT shows no hydronephrosis of either kidney and an enlarged uterus that is thought to be a form from multiple fibroids 02/08: Patient was seen by urology for hydronephrosis , licea catheter was placed. Gynecology has seen patient and recommends patient does a IR guided uterine artery embolization and use a TXA tablets to minimize menstrual loss bleeding . Patient is to undergo procedure. Sub mandibular ultrasound was done and showed an area of enlargement corresponding to a lymph node measuring at 1.1 x 0.8 x 0.7 cm 02/09: lymph nodes are tender but not worse than yesterday 02/10: Spoke with department of public health . patient can get an accelerated panel for MTB PCRs performed if we send it to their department 02/11: patient underwent IR guided embolization and has since not had any bleeding and no abdominal pain from procedure 02/12: Patient is doing well off antibiotics , TB rule out is mostly complete , just awaiting MTB PCR to return Plan : - send MTB PCR samples to department of public health to get accelerated results returned - can monitor off all antibiotics - AFB sputum are negative x3 , awaiting MTB PCR to come back negative - given the risk factors and known active case of TB at [facility] would do a full TB rule out for this patient - continue azithromycin - can treat empirically for pneumonia for now - would include non infectious causes of hyler lymphadenopathy in the differential including lymphoma and sarcoidosis Plan discussed with: Other Dietary Evaluation Review Recommendations by RD: Dietary education by RD Comments: 1) Encourage optimal PO intake 2) Refer to outpatient RD for weight management 3) Follow-up with cardiology, hematology, and infectious disease 4) Continue to monitor I&O, labs, and skin integrity Expected Outcomes/Goals: 1) appetite and labs to improve 2) f/u in 3-5 days CC Plasma Assessment Blood Product Administration S: [id number] JULIET CRISTINA MD Feb 13, 2025 10:23
--- NOTE | 2025-02-13 10:23 | DVHPN2 ---
Consult Progress Note Date Seen: Feb 13, 2025 Subjective Patient reports: Feels better (no concerns , still able to produce sputum . still having some night sweats ) Objective vital signs Vital Sign Date Time Temp Pulse Resp B/P (MAP) Pulse Ox O2 Delivery O2 Flow Rate FiO2 02/13/25 09:30 99.2 91 12 100/69 (79) 100 99.2 02/12/25 21:30 0.0 02/12/25 20:00 Room Air* 21 Total Intake and Output 02/12/25 02/12/25 02/13/25 14:59 22:59 06:59 Intake Total 750 ml 600 ml Output Total 550 ml Balance 750 ml 600 ml -550 ml medications Current Medications Medications Dose Ordered Sig/Mihir Route Start Time Stop Time Status Last Admin Dose Admin Albuterol 2.5 mg Q4HPRN PRN NEB 01/31/25 20:45 02/10/25 10:46 2.5 MG Ipratropium [place] 0.5 mg Q4HPRN PRN NEB 01/31/25 20:45 02/10/25 10:46 0.5 MG Docusate Sodium 100 mg BIDPRN PRN PO 01/31/25 20:45 Acetaminophen 650 mg Q6HP PRN PO 01/31/25 20:45 02/11/25 17:01 650 MG Nitroglycerin 0.4 mg Q5MINP PRN SL 01/31/25 23:00 Melatonin 5 mg HS PO 02/01/25 22:00 02/12/25 22:32 5 MG Alprazolam 0.5 mg Q8HPRN PRN PO 02/01/25 15:45 02/11/25 08:14 0.5 MG Hydromorphone HCl 2 mg Q6HP PRN PO 02/07/25 15:30 Hold 02/11/25 01:56 2 MG Ciprofloxacin 500 mg Q12HR PO 02/08/25 22:00 02/12/25 22:32 500 MG Diphenhydramine HCl 50 mg Q6HP PRN PO 02/09/25 14:00 02/13/25 01:49 50 MG Metoclopramide HCl 10 mg Q6HPRN PRN PO 02/09/25 14:00 02/12/25 22:32 10 MG Ketorolac Tromethamine 30 mg Q6HPRN PRN IV 02/11/25 16:30 02/16/25 16:29 02/11/25 22:20 30 MG Sodium Chloride 1,000 ml @ 150 mls/hr Q6H40M IV 02/11/25 17:00 02/13/25 08:09 150 MLS/HR Ondansetron HCl 4 mg Q4HPRN PRN IV 02/12/25 13:00 Hold Promethazine HCl 25 mg Q4HP PRN [place] 02/12/25 17:00 Hold Hydromorphone HCl 1 mg Q1HR PRN IV 02/12/25 14:45 02/12/25 23:31 1 MG laboratory and microbiology Laboratory Tests 02/08/25 08:41 Test 02/08/25 08:41 Range/Units Serum Glucose 87 74-106 mg/dL Problem List/Assessment/Plan Problems(with codes): (1) Severe anemia (2) Fatigue (3) Generalized weakness (4) Other fatigue (5) Elevated d-dimer (6) Bulky or enlarged uterus (7) Menorrhagia with irregular cycle Problem List/Assessment/Plan Patient is a 44 year old female with a past medical history of anemia , maharaja , fainting spells since August . presents with SOB and sweating, having about 10 lbs of weight loss , cough , and sputum since September . Was told by [place] that she was in direct contact with another patient that was positive for Tb and then developed a positive quantifier . Patient states she was given the BCG vaccine , however she was born and raised in [place]. Has no travel history , Labs are normal . Has a notable submental lymph node that is on her left side and is enlarged. Physical exams shows crackles in lungs bilaterally . chest xray shows higher lymphadenopathy . 02/04: continues to do well today , did experience night sweat and abnormal uterine bleeding episodes overnight. Is notable to be mildly tachycardic and has some tenderness at sub mental lymph node . quantifier gold is positive so will need to complete the rule out as that adds to the suspicion , HIV , aspergillus , coxitides antibodies serologies are still pending . Covid -19 is negative 02/07: menstrual bleeding overnight and is feeling lightheaded and dizzy this morning. No mild abdominal tenderness . Being evaluated by gynecology. Renal ultrasound shows a mild hydronephrosis of the right kidney . Abdomen and pelvis CT shows no hydronephrosis of either kidney and an enlarged uterus that is thought to be a form from multiple fibroids 02/08: Patient was seen by urology for hydronephrosis , licea catheter was placed. Gynecology has seen patient and recommends patient does a IR guided uterine artery embolization and use a TXA tablets to minimize menstrual loss bleeding . Patient is to undergo procedure. Sub mandibular ultrasound was done and showed an area of enlargement corresponding to a lymph node measuring at 1.1 x 0.8 x 0.7 cm 02/09: lymph nodes are tender but not worse than yesterday 02/10: Spoke with department of public health . patient can get an accelerated panel for MTB PCRs performed if we send it to their department 02/11: patient underwent IR guided embolization and has since not had any bleeding and no abdominal pain from procedure 02/12: Patient is doing well off antibiotics , TB rule out is mostly complete , just awaiting MTB PCR to return 02/13: will attempt to send 2 additional MTB PCR samples to the department of public health to get samples to come back quicker . AFB sputum x3 remains negative . preliminary cultures are also negative and MTB PCR is also negative Plan : - patient can come off isolation , low concern for active TB diseases at this time - have patient follow up with department of public health as outpatient to determine when she can go back to work but she can come off isolation - no need for antibiotic therapy at this time - FU with infectious disease clinic in 4 weeks to rule out infectious to complete TB ruleout evaluation - defer additional workup for high level lymphadenopathy to pulmonology team - will attempt to send 2 additional MTB PCR samples to the department of public health to get accelerated results returned - can monitor off all antibiotics - AFB sputum are negative x3 , awaiting MTB PCR to come back negative - given the risk factors and known active case of TB at [facility] would do a full TB rule out for this patient - would include non infectious causes of hyler lymphadenopathy in the differential including lymphoma and sarcoidosis Plan discussed with: Other Dietary Evaluation Review Recommendations by RD: Dietary education by RD Comments: 1) Encourage optimal PO intake 2) Refer to outpatient RD for weight management 3) Follow-up with cardiology, hematology, and infectious disease 4) Continue to monitor I&O, labs, and skin integrity Expected Outcomes/Goals: 1) appetite and labs to improve 2) f/u in 3-5 days CC Plasma Assessment Blood Product Administration S: [id number] JULIET CRISTINA MD Feb 13, 2025 10:23
--- NOTE | 2025-02-13 10:26 | DVHPN2 ---
Consult Progress Note Objective vital signs Vital Sign Date Time Temp Pulse Resp B/P (MAP) Pulse Ox O2 Delivery O2 Flow Rate FiO2 02/13/25 09:30 99.2 91 12 100/69 (79) 100 99.2 02/12/25 21:30 0.0 02/12/25 20:00 Room Air* 21 Total Intake and Output 02/12/25 02/12/25 02/13/25 14:59 22:59 06:59 Intake Total 750 ml 600 ml Output Total 550 ml Balance 750 ml 600 ml -550 ml medications Current Medications Medications Dose Ordered Sig/Mihir Route Start Time Stop Time Status Last Admin Dose Admin Albuterol 2.5 mg Q4HPRN PRN NEB 01/31/25 20:45 02/10/25 10:46 2.5 MG Ipratropium [place] 0.5 mg Q4HPRN PRN NEB 01/31/25 20:45 02/10/25 10:46 0.5 MG Docusate Sodium 100 mg BIDPRN PRN PO 01/31/25 20:45 Acetaminophen 650 mg Q6HP PRN PO 01/31/25 20:45 02/11/25 17:01 650 MG Nitroglycerin 0.4 mg Q5MINP PRN SL 01/31/25 23:00 Melatonin 5 mg HS PO 02/01/25 22:00 02/12/25 22:32 5 MG Alprazolam 0.5 mg Q8HPRN PRN PO 02/01/25 15:45 02/11/25 08:14 0.5 MG Hydromorphone HCl 2 mg Q6HP PRN PO 02/07/25 15:30 Hold 02/11/25 01:56 2 MG Ciprofloxacin 500 mg Q12HR PO 02/08/25 22:00 02/12/25 22:32 500 MG Diphenhydramine HCl 50 mg Q6HP PRN PO 02/09/25 14:00 02/13/25 01:49 50 MG Metoclopramide HCl 10 mg Q6HPRN PRN PO 02/09/25 14:00 02/12/25 22:32 10 MG Ketorolac Tromethamine 30 mg Q6HPRN PRN IV 02/11/25 16:30 02/16/25 16:29 02/11/25 22:20 30 MG Sodium Chloride 1,000 ml @ 150 mls/hr Q6H40M IV 02/11/25 17:00 02/13/25 08:09 150 MLS/HR Ondansetron HCl 4 mg Q4HPRN PRN IV 02/12/25 13:00 Hold Promethazine HCl 25 mg Q4HP PRN [place] 02/12/25 17:00 Hold Hydromorphone HCl 1 mg Q1HR PRN IV 02/12/25 14:45 02/12/25 23:31 1 MG laboratory and microbiology Laboratory Tests 02/08/25 08:41 Test 02/08/25 08:41 Range/Units Serum Glucose 87 74-106 mg/dL Dietary Evaluation Review Recommendations by RD: Dietary education by RD Comments: 1) Encourage optimal PO intake 2) Refer to outpatient RD for weight management 3) Follow-up with cardiology, hematology, and infectious disease 4) Continue to monitor I&O, labs, and skin integrity Expected Outcomes/Goals: 1) appetite and labs to improve 2) f/u in 3-5 days CC Plasma Assessment Blood Product Administration S: [id number] JULIET CRISTINA MD Feb 13, 2025 10:26
--- NOTE | 2025-02-13 16:06 | DVHPN2 ---
Subjective In bed resting Reviewed: H&P, Labs Changes from previous H/P or p: No Changes Eyes: No Pain, No Vision change, No Conjunctivae inflammation, No Eyelid inflammation, No Other, No Redness ENT: No Ear pain, No Ear discharge, No Nose pain, No Nose discharge, No Nose congestion, No Mouth pain, No Mouth swelling, No Throat pain, No Throat swelling, No Other Cardiovascular: No Chest Pain, No Palpitations, No Orthopnea, No Paroxysmal Noc. Dyspnea, No Edema, No Lt Headedness, No Other Respiratory: No Cough, No Dry; Shortness of breath; No SOB with excertion, No Wheezing, No Hemoptysis, No Pleuritic Pain, No Sputum, No Other Gastrointestinal: No Nausea, No Vomiting, No Abdominal Pain, No Diarrhea, No Constipation, No Melena, No Hematochezia, No Other Genitourinary: No Dysuria, No Frequency, No Incontinence, No Hematuria, No Retention, No Other Musculoskeletal: No other, No neck pain, No shoulder pain, No arm pain, No back pain, No hand pain, No leg pain, No foot pain Skin: No Rash, No Lesions, No Jaundice, No Bruising, No Other Objective Vitals Vital Signs Date Time Temp Pulse Resp B/P (MAP) Pulse Ox O2 Delivery O2 Flow Rate FiO2 02/13/25 12:30 90 15 105/64 02/13/25 10:00 100 Room Air 0.0 02/13/25 10:00 21 02/13/25 09:30 99.2 99.2 Intake/Output Intake and Output 02/13/25 07:00 Intake Total 1350 ml Output Total 550 ml Balance 800 ml Intake Oral 600 ml IV Total 750 ml Output Urine Total 550 ml # Voids 3 # Bowel Movements 1 General Appearance: Alert, Oriented X3 Lungs: Clear to auscultation Cardiovascular: Regular rate, Normal S1, Normal S2 Abdomen: Normal bowel sounds Medications Current Medications Medications Dose Ordered Sig/Mihir Route Start Time Stop Time Status Last Admin Dose Admin Albuterol 2.5 mg Q4HPRN PRN NEB 01/31/25 20:45 02/10/25 10:46 2.5 MG Ipratropium [place] 0.5 mg Q4HPRN PRN NEB 01/31/25 20:45 02/10/25 10:46 0.5 MG Docusate Sodium 100 mg BIDPRN PRN PO 01/31/25 20:45 Acetaminophen 650 mg Q6HP PRN PO 01/31/25 20:45 02/11/25 17:01 650 MG Nitroglycerin 0.4 mg Q5MINP PRN SL 01/31/25 23:00 Melatonin 5 mg HS PO 02/01/25 22:00 02/12/25 22:32 5 MG Alprazolam 0.5 mg Q8HPRN PRN PO 02/01/25 15:45 02/11/25 08:14 0.5 MG Hydromorphone HCl 2 mg Q6HP PRN PO 02/07/25 15:30 Hold 02/11/25 01:56 2 MG Ciprofloxacin 500 mg Q12HR PO 02/08/25 22:00 02/13/25 10:16 500 MG Diphenhydramine HCl 50 mg Q6HP PRN PO 02/09/25 14:00 02/13/25 12:09 50 MG Metoclopramide HCl 10 mg Q6HPRN PRN PO 02/09/25 14:00 02/12/25 22:32 10 MG Ketorolac Tromethamine 30 mg Q6HPRN PRN IV 02/11/25 16:30 02/16/25 16:29 02/11/25 22:20 30 MG Sodium Chloride 1,000 ml @ 150 mls/hr Q6H40M IV 02/11/25 17:00 02/13/25 15:57 150 MLS/HR Ondansetron HCl 4 mg Q4HPRN PRN IV 02/12/25 13:00 Hold Promethazine HCl 25 mg Q4HP PRN FL 02/12/25 17:00 Hold Hydromorphone HCl 1 mg Q1HR PRN IV 02/12/25 14:45 02/13/25 11:41 1 MG Laboratory Results Laboratory Tests 02/08/25 08:41 Urinalysis Test 02/08/25 06:26 Urine Color Red (Yellow) H Urine Clarity Cloudy (Clear) H Urine pH 6.0 (5.0-9.0) Urine Specific [place] 1.012 (1.001-1.035) Urine Protein 2+ (Negative) H Urine Ketones Negative (Negative) Urine Blood 3+ /uL (Negative) H Urine Nitrite Negative (Negative) Urine Bilirubin Negative (Negative) Urine Urobilinogen Normal mg/dL (Negative) Urine Leukocyte Esterase 2+ /uL (Negative) Urine RBC 3331 /hpf (0 - 4) Urine Microscopic WBC 24 /HPF (0-5) H Urine Squamous Epithelial Cells None seen /hpf (<5) Urine Bacteria Few /hpf (None Seen) H Urine Glucose Normal mg/dL (Normal) Microbiology Microbiology Date/Time Source Procedure Growth Status 02/05/25 09:20 Sputum AFB Broth Culture Pending Resulted 02/05/25 09:20 Sputum - Final Resulted 02/05/25 09:20 Sputum - Final Resulted 02/05/25 09:20 Sputum Acid Fast Bacilli Culture Pending Resulted Assessment/Plan Assessment/Plan 81-year-old female with a known history of chronic anemia, presented to the hospital with a complaining of fainting spells on and off. 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 Patient is counseled complaining of burning urination and blood in the urine 1. Recent positive QuantiFERON as an outpatient, rule out tuberculosis although clinical suspicion is low 2. Severe anemia status post 2 units of packed RBC 3. Urinary tract infection with hematuria 4. Bilateral hilar adenopathy likely reactive 5. Anxiety disorder -QuantiFERON gold test is positive BS still waiting for sputum for AFB x3 as well as MTB. Appreciated Infectious Disease recommendations., anxiolytic medications -plan of care discussed with the patient who understand verbalized understanding and agreeable to plan, patient is requesting stronger pain medication for chronic pain syndrome. Pending sputum test results Plan discussed with: Patient Date of Service: Feb 13, 2025 Billing Provider: MIRZA NOVAK MD Common Visit Codes: [id number] INP/OBS CARE(HIGH) MIRZA NOVAK MD Feb 13, 2025 16:06
--- NOTE | 2025-02-20 06:16 | DVHDS2 ---
Discharge Summary Date of Admission Jan 31, 2025 at 22:56 Date of Discharge: Feb 13, 2025 Labs/Diagnostic Data: Laboratory Results Test 02/11/25 09:36 02/08/25 08:41 02/08/25 06:26 02/08/25 04:59 Prothrombin Time 10.9 sec (9.3-11.8) Prothrombin Time INR 1.03 (0.9-1.15) Activated Partial Thromboplast Time 27.7 SEC (24.5-34.5) White Blood Count 6.8 10^3/uL (4.4-10.8) Red Blood Count 4.36 10^6/uL (4.0-5.20) Hemoglobin 9.4 g/dL (12.2-16.2) Hematocrit 29.0 % (36.0-46.0) Mean Corpuscular Volume 66.5 fL (80.0-100.0) Mean Corpuscular Hemoglobin 21.5 pg (28.0-32.0) Mean Corpuscular Hemoglobin Concent 32.3 g/dL (32.0-36.0) Red Cell Distribution Width 24.1 % (11.8-14.3) Platelet Count 162 10^3/uL (140-450) Mean Platelet Volume 9.0 fL (6.9-10.8) Neutrophils (%) (Auto) 64.2 % (37.0-80.0) Lymphocytes (%) (Auto) 22.3 % (10.0-50.0) Monocytes (%) (Auto) 9.8 % (0.0-12.0) Eosinophils (%) (Auto) 2.8 % (0.0-7.0) Basophils (%) (Auto) 0.9 % (0.0-2.0) Neutrophils # (Auto) 4.4 10 ^3/uL (1.6-8.6) Lymphocytes # (Auto) 1.5 10 ^3/uL (0.4-5.4) Monocytes # (Auto) 0.7 10 ^3/uL (0-1.3) Eosinophils # (Auto) 0.2 10 ^3/uL (0-0.8) Basophils # (Auto) 0.1 10 ^3/uL (0-0.2) Nucleated Red Blood Cells 0.1 % Sodium Level 142 mmol/L (136-145) Potassium Level 4.6 mmol/L (3.5-5.1) Chloride Level 106 mmol/L (98-107) Carbon Dioxide Level 25 mmol/L (20-31) Anion Gap 11 (5-15) Blood Urea Nitrogen 14 mg/dL (9-23) Creatinine 0.93 mg/dL (0.550-1.02) Glomerular Filtration Rate Calc 78 mL/min (>90) BUN/Creatinine Ratio 15.1 (10.0-20.0) Serum Glucose 87 mg/dL (74-106) Calcium Level 10.3 mg/dL (8.7-10.4) Urine Color Red (Yellow) Urine Clarity Cloudy (Clear) Urine pH 6.0 (5.0-9.0) Urine Specific [place] 1.012 (1.001-1.035) Urine Protein 2+ (Negative) Urine Ketones Negative (Negative) Urine Blood 3+ /uL (Negative) Urine Nitrite Negative (Negative) Urine Bilirubin Negative (Negative) Urine Urobilinogen Normal mg/dL (Negative) Urine Leukocyte Esterase 2+ /uL (Negative) Urine RBC 3331 /hpf (0 - 4) Urine Microscopic WBC 24 /HPF (0-5) Urine Squamous Epithelial Cells None seen /hpf (<5) Urine Bacteria Few /hpf (None Seen) Urine Glucose Normal mg/dL (Normal) SARS-CoV-2 Antigen (Rapid) Negative (NEGATIVE) Test 02/06/25 08:08 02/02/25 12:48 02/01/25 21:08 02/01/25 08:40 Miscellaneous [facility] Test [facility]Refrg[facility] ([facility]FT) Gold Plus Positive (Negative) TB Test (QFT) Nil 0.08 IU/mL (.) TB Test (QFT) Mitogen 5.06 IU/mL (.) TB Test (QFT) Antigen 1 1.40 IU/mL (.) TB Test (QFT) Antigen 2 1.13 IU/mL (.) TB Test (QFT) Criteria Comment (.) Coccidioides Antibody (Comp Fix) <1:2 (<1:2) HIV (1&2) Antibody Negative (Negative) Aspergillus flavus Antibody Negative (Neg:<1:1) Aspergillus fumigatus Antibody Negative (Neg:<1:1) Aspergillus niger Antibody Negative (Neg:<1:1) Erythrocyte Sedimentation Rate 17 mm/hr (0-20) Hemoglobin A1c 5.2 % A1C (<5.7) Total Bilirubin 1.9 mg/dL (0.2-1.0) Aspartate Amino Transferase (AST) 20 U/L (13-40) Alanine Aminotransferase (ALT) 14 U/L (7-40) Alkaline Phosphatase 121 U/L (46-116) Total Protein 7.3 g/dL (5.7-8.2) Albumin 4.4 g/dL (3.2-4.8) Test 01/31/25 18:59 01/31/25 15:49 Troponin I High Sensitivity 3 ng/L (</=34) Platelet Estimate Adequate Hypochromasia (manual) Marked Anisocytosis (manual) Slight Microcytosis Marked D-Dimer, Quantitative 0.93 mg/L FEU (0.0-0.49) B-Type Natriuretic Peptide 97.69 pg/mL (0-100) Other Laboratory Tests 02/08/25 08:41 Brief Hx & Hospital Course: 44-year-old female with past medical history of anemia who presented to [facility] ED with complaint of shortness of breaths. Patient reports experiencing generalized weakness, associated nausea, getting worse that prompted this visit. Patient was seen and evaluated in the ED, laboratory data shows WBC 5.0, hemoglobin 7.1, hematocrit 22.7, platelets 175, sodium 142, potassium 3.2, BUN 7, creatinine 0.80, glucose 89, BNP 97.69, troponin 3, D- dimer 0.93, blood pressure 125/75, heart rate 91, temperature 98.2 F, O2 saturation 99% on oxygen. CT angiography showed no evidence of pulmonary atrial filling defect as far as the proximal interlobular level. Patient was given 2 units of PRBC, please see medication orders section in the computer. On my assessment, patient denied chest pain, no headache, no dizziness, no diaphoresis, currently on oxygen, no nausea, no vomiting, no fever, no chills. Patient was admitted for further evaluation and medical management. 1. Recent positive QuantiFERON as an outpatient, rule out tuberculosis although clinical suspicion is low 2. Severe anemia status post 2 units of packed RBC 3. Urinary tract infection with hematuria 4. Bilateral hilar adenopathy likely reactive 5. Anxiety disorder Condition at Discharge: Good Final Diagnosis/Problems List Abnormal uterine bleeding acute blood loss anemia due to uterine bleeding possible active tuberculosis Discharge Disposition: AMA Discharge Statement: "Patient was advised to return to the ER or call 911 if any headaches, dizziness, shortness of breath, chest pain, abdominal pain, bleeding, fevers, or worsening of medical condition. Patient was counseled about treatment plan, medications, possible side effects, patientverbalized understanding. All questions were answered to the best of my ability. This discharge took greater then 30 minutes in planning, reviewing documentation, counseling the patient, and discussing with other team members." ASSESSMENT ASSESSMENT Assessment Date of Service: Feb 13, 2025 Billing Provider: MIRZA NOVAK MD Common Visit Codes: 29208-GNT/OBS DISCH DAY >30min MIRZA NOVAK MD Feb 20, 2025 06:16
== END 2025-02-13 21:00 | disposition left against medical advice (07) | DRG 749 ==
LOC: ER 15:08 → OVERFLOW 22:56 → TELE-EAST 22:56 → EAST 02-06 15:08
PROVIDERS: ADMIT Hospitalist; ATTEND Hospitalist
PROC: 30233N1 Transfusion of Nonautologous Red Blood Cells into Peripheral Vein, Percutaneous Approach (ICD-10-PCS; principal; 2025-01-31)
PROC: 04LE3DT Occlusion of Right Uterine Artery with Intraluminal Device, Percutaneous Approach (ICD-10-PCS; 2025-02-12)
PROC: 04LF3DU Occlusion of Left Uterine Artery with Intraluminal Device, Percutaneous Approach (ICD-10-PCS; 2025-02-12)
DX: D25.9 Leiomyoma of uterus, unspecified (principal); A15.9 Respiratory tuberculosis unspecified; D62 Acute posthemorrhagic anemia; N13.6 Pyonephrosis; N92.1 Excessive and frequent menstruation with irregular cycle; F17.210 Nicotine dependence, cigarettes, uncomplicated; F41.9 Anxiety disorder, unspecified; R53.83 Other fatigue; R79.89 Other specified abnormal findings of blood chemistry; R59.0 Localized enlarged lymph nodes; G89.4 Chronic pain syndrome; Z20.822 Contact with and (suspected) exposure to COVID-19; R31.0 Gross hematuria; Z82.49 Family history of ischemic heart disease and other diseases of the circulatory system; Z83.3 Family history of diabetes mellitus; Z98.891 History of uterine scar from previous surgery; Z88.1 Allergy status to other antibiotic agents; Z88.0 Allergy status to penicillin; Z78.9 Other specified health status; Z53.29 Procedure and treatment not carried out because of patient's decision for other reasons; R31.9 Hematuria, unspecified
CPT/HCPCS: 36415; 37243; 71045; 71275; 74176; 76536; 76775; 76856; 80048; 80053; 81001; 83036; 83880; 84484; 85025; 85379; 85610; 85652; 85730; 86606; 86635; 86703; 86850; 86900; 86901; 86920; 87426; 94640; 96374; 99152; 99291; C1894; G0378; J1885; J2250; J2405; Q0162; Q9967